=== PATIENT | male | born 1940 | race Caucasian/White ===

== ENCOUNTER 2016-11-20 12:14 | Inpatient (IN) ==
--- NOTE | 2016-11-20 12:53 | Emergency Department Note ---
Disposition Clinical Impression: COPD exacerbation, Atrial fibrillation with RVR, Elevated troponin Disposition: Admitted As Inpatient Condition: Fair Referrals: Gustabo Ross DO [Primary Care Provider] - Forms: ED Satisfaction Letter Time of Disposition: 15:29 SOB HPI - General Chief Complaint: ED Shortness of Breath/Dyspnea Stated Complaint: TATUM Time Seen by Provider: 11/20/16 12:46 Nursing Notes Reviewed: Yes Vital Signs Reviewed: Yes - History of Present Illness Patient is a 76-year-old male who presents to [facility] ED with a chief complaint of difficult deep breathing. States his symptoms have been ongoing for the last 3 weeks. He was seen approximately 10 days prior by his primary care physician who placed him on a course of antibiotics. States he was feeling better until yesterday. Patient does have a past medical history of atrial fibrillation with RVR which occurred during a previous hospitalization due to pneumonia. His doctor initially told him to stay away from albuterol but that they could not afford the other medications that they went back on albuterol. He presents here today also in atrial fibrillation. Pt Subjective Complaint: shortness of breath Onset (ago): hour(s) Context: recent illness Severity: moderate Consistency/Duration: gradually worsening Improves with: nothing Worsens with: exertion Known history of: COPD Associated symptoms: Reports: cough, wheezing. Denies: fever Treatment prior to arrival: oxygen Cough present: Yes Cough Description: Involuntary Cough Frequency: Continuous - Related Data Home oxygen amount: 2 liters Home Medications Medication Instructions Recorded Confirmed Docusate [Colace] 200 mg PO BID 11/10/15 11/20/16 Isosorbide MONOnitrate (24 HR) 30 mg PO QAM 11/10/15 11/20/16 [Imdur] Losartan [Cozaar] 25 mg PO QAM 11/10/15 11/20/16 Metformin [Glucophage] 500 mg PO QAM 11/10/15 11/20/16 Metoprolol XL (24 HR) Succ [Toprol 50 mg PO QAM 11/10/15 11/20/16 Xl] Psyllium Husk [Fiber] 2 cap PO HS 11/10/15 11/20/16 Rosuvastatin [Crestor] 20 mg PO HS 11/10/15 11/20/16 [place] Oil/[place]-3 Fatty Acids 1 cap PO QAM 11/10/15 11/20/16 [Fish Oil 500 mg Softgel] Furosemide [Lasix] 40 mg PO QAM 11/13/15 11/20/16 Potassium Chloride 10 meq PO QAM 11/13/15 11/20/16 Previous Rx's Medication Instructions Recorded Levalbuterol Neb [Xopenex Neb] 1.25 mg IH TID #1 vial.neb 11/15/15 Budesonide/Formoterol 80/4.5 2 puff IH BIDR #1 inhaler 11/21/15 [Symbicort 80/4.5] Aspirin Enteric Coated [Aspirin EC] 81 mg PO DAILY #30 tablet. 11/26/15 Amoxicillin 875 mg PO BID #28 tablet 11/10/16 Allergies Allergy/AdvReac Type Severity Reaction Status Date / Time No Known Drug Allergies Allergy See Verified 11/10/15 12:38 Comments All systems ED: reviewed and negative except as stated. Past Medical History - Past Medical History Attestation: Yes The following information was validated with the patient. Source: patient Medical history: Reports: arthritis, atrial fibrillation, cancer, COPD, coronary artery disease, diabetes, myocardial infarction, other Surgical history: Reports: angioplasty/stent ( X 5), herniorrhaphy Psychiatric history: Reports: anxiety, depression - Social History Smoking Status: Never smoker Smokeless Tobacco Status: No Alcohol use: Reports: unknown Drug use: Reports: none Physical Exam - General Limitations: no limitations General appearance: alert - Head Head exam: atraumatic, normocephalic, normal inspection - Eye Eye exam: Present: normal appearance, PERRL, EOMI - ENT ENT exam: normal exam, normal oropharynx, mucous membranes moist - Neck Neck exam: Present: normal inspection, full ROM, trachea midline - Chest Chest inspection: Present: normal inspection, symmetric chest wall rise - Respiratory Respiratory exam: Present: wheezes (diffuse b/l) - Cardiovascular Cardiovascular exam: Present: tachycardia, irregular rhythm - Abdominal Exam Abdominal exam: Present: soft, Non-Tender. Absent: tenderness, distention, guarding, rebound, rigidity - Extremities Exam Extremities exam: Present: normal inspection, full ROM. Absent: tenderness, pedal edema - Back Exam Back exam: Present: normal inspection, full ROM. Absent: tenderness - Neurological Exam Neurological exam: Present: alert, oriented X3 - Psychiatric Psychiatric exam: Present: normal affect, normal mood - Skin Skin exam: Present: warm, dry, intact, normal color Course Course Narrative: Patient seen and examined. Difficulty breathing and wheezing. Likely COPD exacerbation. Patient has bilateral diffuse wheezes and sounds very tight. Denies any chest pain at this time. Cardiopulmonary workup initiated. DuoNeb treatment and 125 mg Solu-Medrol ordered. - Reevaluation(s) Reevaluation #1: Troponin elevated at 0.04. Patient still in atrial fibrillation with RVR with a rate in the low 100s. I feel this is likely secondary to his COPD exacerbation. We will likely admit for elevated troponin, COPD exacerbation, and atrial fibrillation with RVR. 10mg IV cardizem ordered. Time: 14:26 Reevaluation #2: Patient's rate has slowed down to the upper 90s. He felt slightly better after the breathing treatment. We will go ahead and admit at this time. Hospitalist paged. Time: 15:15 Reevaluation #3: Patient accepted to hospitalist service by Dr. Ruiz. Time: 15:28 Vital Signs Temperature 99 F 11/20/16 12:31 Pulse Rate 114 11/20/16 12:31 Respiratory Rate 18 11/20/16 12:31 Blood Pressure 146/98 11/20/16 12:31 O2 Sat by Pulse Oximetry 97 11/20/16 12:31 Temperature 99 F 11/20/16 12:31 Pulse Rate 111 11/20/16 13:48 Respiratory Rate 18 11/20/16 13:48 Blood Pressure 135/83 11/20/16 13:48 O2 Sat by Pulse Oximetry 97 11/20/16 13:48 Oxygen Delivery Oxygen Delivery Nasal Cannula Shortness of Breath/Dyspnea - Medical Records Medical records reviewed: Yes I reviewed the patient's medical records. - Lab Data Lab results reviewed: Yes I reviewed the patient's lab results. Result diagrams: 11/20/16 13:01 11/20/16 13:01 Lab Results 11/20/16 11/20/16 11/20/16 Range/Units 13:01 13:01 13:01 WBC 8.7 (4.3-11.1) K/mcL RBC 4.73 (4.19-5.50) M/mcL Hgb 13.9 (12.9-16.9) g/dL Hct 42.2 (37.5-50.1) % MCV 89.2 (83.0-100.0) fL MCH 29.4 (28.0-33.3) pg MCHC 32.9 (31.6-35.5) g/dL RDW 14.0 (11.5-14.5) % Plt Count 232 (140-400) K/mcL MPV 9.4 (9.4-12.4) fL Immature Gran % 0.6 (0-4) % Seg Neutrophils % 65.8 % Lymphocytes % 14.7 % Monocytes % 18.1 % Eosinophils % 0.5 % Basophils % 0.3 % Neutrophils # 5.7 (1.6-8.9) K/mcL Lymphocytes # 1.3 (0.6-4.6) K/mcL Monocytes # 1.6 H (0.0-1.3) K/mcL Eosinophils # 0.0 (0.0-0.6) K/mcL Basophils # 0.0 (0.0-0.2) K/mcL Platelet Estimate Normal (Normal) Sodium 137 (136-145) mEq/L Potassium 4.0 (3.5-4.5) mEq/L Chloride 101 (98-109) mEq/L Carbon Dioxide 28 (19-29) mEq/L BUN 9 (8-26) mg/dL Creatinine 0.82 (0.72-1.25) mg/dL Est GFR ( Amer) > 60 (> 60) Est GFR (Non-Af Amer) > 60 (> 60) BUN/Creatinine Ratio 11 (6-26) Glucose 111 H (70-99) mg/dL Calculated Osmolality 283 (280-300) Calcium 9.2 (8.6-10.8) mg/dL Troponin I 0.04 H* (0-0.03) ng/mL B-Natriuretic Peptide (0-100) pg/mL 11/20/16 Range/Units 13:01 WBC (4.3-11.1) K/mcL RBC (4.19-5.50) M/mcL Hgb (12.9-16.9) g/dL Hct (37.5-50.1) % MCV (83.0-100.0) fL MCH (28.0-33.3) pg MCHC (31.6-35.5) g/dL RDW (11.5-14.5) % Plt Count (140-400) K/mcL MPV (9.4-12.4) fL Immature Gran % (0-4) % Seg Neutrophils % % Lymphocytes % % Monocytes % % Eosinophils % % Basophils % % Neutrophils # (1.6-8.9) K/mcL Lymphocytes # (0.6-4.6) K/mcL Monocytes # (0.0-1.3) K/mcL Eosinophils # (0.0-0.6) K/mcL Basophils # (0.0-0.2) K/mcL Platelet Estimate (Normal) Sodium (136-145) mEq/L Potassium (3.5-4.5) mEq/L Chloride (98-109) mEq/L Carbon Dioxide (19-29) mEq/L BUN (8-26) mg/dL Creatinine (0.72-1.25) mg/dL Est GFR ( Amer) (> 60) Est GFR (Non-Af Amer) (> 60) BUN/Creatinine Ratio (6-26) Glucose (70-99) mg/dL Calculated Osmolality (280-300) Calcium (8.6-10.8) mg/dL Troponin I (0-0.03) ng/mL B-Natriuretic Peptide 220 H (0-100) pg/mL - Radiology Data Radiology results reviewed: Yes I reviewed the patient's radiology results. - EKG Data EKG attestation: Yes I reviewed and interpreted this EKG. EKG results narrative: EKG done at 1237 shows atrial fibrillation with RVR with a rate of 109 beats per minute. Moderate intraventricular conduction delay. No acute ST elevation. Mild ST depression noted in V5 and V6. Critical Care Time Critical Care Time: Yes Total Critical Care Time: 35 Attestation: Critical care time 35 minutes separate from other billable procedures. Attestation Statement - Attestation Attestation: Patient was seen with resident physician. I reviewed the history, physical, assessment and plan, and agree with the findings. I also personally evaluated this patient and had [id number] time with this patient. 76-year-old male presents to the emergency department with worsening shortness of breath cough for the last several days. History of COPD, and A. fib with RVR that was brought on from pneumonia.. Currently his symptoms have been progressively getting worse. On examination patient has very poor air exchange with some wheezing throughout. Also has heart with tachycardia. Abdomen is soft and nontender with positive bowel sounds. Extremities are unremarkable. We will do workup for breathing trouble and chest pain. Patient turns out to have A. fib with RVR in addition to acute asthma exacerbation. His troponin was slightly positive. We will need to admit the patient to the hospital for further evaluation and treatment. Critical care time 35 minutes to address both the elevated cardiac enzymes as well as the A. fib with RVR in respiratory issues. Agree with the resident physician assessment plan
[2016-11-20] MEDS ORDERED: Ipratropium/Albuterol Neb 3 ML IH ONE (12:54)
[2016-11-20 13:10] LABS: Basophils % 0.3 %; Eosinophils % 0.5 %; Hematocrit 42.2 % (37.5-50.1); Hemoglobin 13.9 g/dL (12.9-16.9); Immature Granulocytes % 0.6 % (0-4); Lymphocytes # 1.3 K/mcL (0.6-4.6); Lymphocytes % 14.7 %; Mean Corpuscular HGB Conc 32.9 g/dL (31.6-35.5); Mean Corpuscular Hemoglobin 29.4 pg (28.0-33.3); Mean Corpuscular Volume 89.2 fL (83.0-100.0); Mean Platelet Volume 9.4 fL (9.4-12.4); Monocytes # 1.6 K/mcL (0.0-1.3); Monocytes % 18.1 %; Neutrophils # 5.7 K/mcL (1.6-8.9); Platelet Count 232 K/mcL (140-400); Red Blood Count 4.73 M/mcL (4.19-5.50); Segmented Neutrophils % 65.8 %
[2016-11-20 13:25] LABS: BUN/Creatinine Ratio 11 (6-26); Blood Urea Nitrogen 9 mg/dL (8-26); Calcium 9.2 mg/dL (8.6-10.8); Carbon Dioxide 28 mEq/L (19-29); Chloride 101 mEq/L (98-109); Glucose 111 mg/dL (70-99); Osmolality,Calculated 283 (280-300); Sodium 137 mEq/L (136-145); eGFR For African Americans > 60 (> 60); eGFR For Non-African Americans > 60 (> 60)
[2016-11-20 13:39] LABS: Platelet Estimate Normal (Normal)
[2016-11-20] MEDS ORDERED: methylPREDNISolone 125 MG/2 ML VIAL IVP ONE (14:16)
[2016-11-20] MEDS ORDERED: Aspirin 81 MG TAB.CHEW PO STA (14:17)
--- NOTE | 2016-11-20 16:17 | Internal Med History&Physical ---
<Paola Mccrary - Last Filed: 11/20/16 16:57> Date of Encounter: 11/20/16 Time of Encounter: 16:15 Assessment and Plan (1) COPD exacerbation Current visit: Yes Status: Acute Evidenced by worsening dyspnea, cough with sputum production. Worsening dyspnea may be multifactorial with contribution from suspected CHF/ VHD. Will commence with empiric antibiotic therapy, obtain BC x 2, sputum G/S & culture, systemic steroids and weaning as clinically warranted. Patient has multiple comorbidities, with cardiac and pulmonary involvement, appropriate for hospital evaluation and workup. (2) Atrial fibrillation with RVR Current visit: Yes Status: Acute Currently on rate-control regimen toprol XL 50mg QAM. Suspect breakthrough RVR 2* COPD and CHF exacerbations. Treatment per below. May warrant increasing dose of toprol XL to 100mg QAM, HR permitting. CHADSVASC 4: Appropriate candidate for anticoagulation. 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 Cardiology and Heme/Onc services had offered him a different agent, but he had declined. We discussed the R/B/A to full anticoagulation, and patient declines at this time. He understands that not being on a/c predisposes him to an increased risk of stroke and other embolic phenomenon. (3) Elevated troponin Current visit: Yes Status: Acute Trope 0.04, in setting of suspected COPD and CHF exacerbation. EKG with Afib, HR 109, QTc 415, moderate intraventricular conduction delay. Has history of prior MD, reports stent in 1995. Will trend. Obtain repeat Echo. (4) CHF (congestive heart failure) Current visit: No Status: Chronic Last Echo: 07/31/2014 Echo: LVEF 60-65%. Mild concentric left ventricular hypertrophy. Diastolic function and valves not evaluated on this limited study. Aside from atypical septal motion due to a bundle branch block, no wall motion abnormalities seen on this study. Suspect degree of CHF exacerbation evidenced by basilar crackles and LE edema. He has a mild troponin elevation 0.04 as well. HFpEF (Heart failure preserved ejection fraction) EKG with Afib, HR 109, QTc 415, moderate intraventricular conduction delay. Has history of prior MD, reports stent in 1995. Diuresis regimen, monitor I/O, volume status. Appropriate for re-eval of LV and Valvular function - Order for Echo with definity. Qualifiers: Congestive heart failure type: diastolic Congestive heart failure chronicity: acute on chronic Qualified Code(s): I50.33 - Acute on chronic diastolic (congestive) heart failure (5) CAD (coronary artery disease), [place] coronary artery Current visit: Yes Status: Acute Prior cardiac and pulmonary workup would include: 01/29/2014 [facility] Unsuccessful attempt at PCI of the calcified chronic total occlusion ([employer]) to mid RCA complicated by RCA dissection that propagates to the ascending aorta. PTCA/Stent of the Proximal and ostium of the RCA to seal the dissection flap and prevents further propagation. Patient had successful PTCA/Drug-Eluting Stent placement in the proximal RCA. Patient had unsuccessful PCI of CLUTCH ASSEMBLER to mid RCA Will continue optimal medical therapy. Qualifiers: [place] vs. transplanted heart: [place] heart Associated angina: without angina Qualified Code(s): I25.10 - Atherosclerotic heart disease of [place] coronary artery without angina pectoris (6) PLACIDO on CPAP Current visit: Yes Status: Acute PLACIDO, on CPAP. Cont QHS. (7) DVT prophylaxis Current visit: No Status: Acute Heparin 5000 U SC BID. History chronic Afib, full anticoagulation was discontinued due to prior hematoma of rectal sheath. Internal Medicine - H&P: HPI Chief complaint: Shortness of breath Admitted From: Home Plans for Post Hospital Care: Home (with ) History of present illness: Mr. Julien is a 76 year old male with past medical history hypertension, hyperlipidemia, obesity, obstructive sleep apnea, CAD, COPD. Patient seen 11/10/16, To urgent care with similar symptoms, sent home with prescription amoxicillin 875 mg by mouth twice a day for 2 week course. He would present to [facility] with worsening shortness of breath, as well as tachycardia, prompting further evaluation. Prior cardiac and pulmonary workup would include: 01/29/2014 [facility] Unsuccessful attempt at PCI of the calcified chronic total occlusion (CLUTCH ASSEMBLER) to mid RCA complicated by RCA dissection that propagates to the ascending aorta. PTCA/Stent of the Proximal and ostium of the RCA to seal the dissection flap and prevents further propagation. Patient had successful PTCA/Drug-Eluting Stent placement in the proximal RCA. Patient had unsuccessful PCI of CLUTCH ASSEMBLER to mid RCA 07/31/2014 Echo: LVEF 60-65%. Mild concentric left ventricular hypertrophy. Diastolic function and valves not evaluated on this limited study. Aside from atypical septal motion due to a bundle branch block, no wall motion abnormalities seen on this study. Chronic atrial fibrillation, was previously on several toe, but then developed hematoma of rectal sheath during hospitalization 11/24/2015. Xarelto was subsequently stopped, cardiology and hematology/oncology had recommended a period without full anticoagulation, consideration for Pradaxa or coumadin. Patient ultimately declined any anticoagulation, but continued on ASA and Plavix. 08/29/2016 PFTs discloses severe obstructive impairment without significant bronchodilator response, FEV1 48% predicted. Upon my evaluation, patient affirms general medical history, but his recollection of sequence leading to hospitalization and precise medical regimen is vague, so medical record was used. Per ER documentation, patient would have upper respiratory symptoms for about 3 weeks, then evaluated by Urgent Care and commenced on oral antibiotics without much improvement. He would endorse subjective chills, worsening shortness of breath, cough with productive green whitish sputum. He would be on chronic long-term oxygen therapy 2 L nasal cannula constant. Patient does report chest discomfort with coughing and with deep inspiration, but denies any substernal nature, dyspnea on exertion, or anginal equivalents. States that he has no abdominal pain, no nausea, vomiting, diarrhea, changes in bowel habits, blood in stool. He reports compliance with Lasix and Imdur. He endorses mild lower extremity pitting edema, no erythema or trauma. He feels somewhat lightheaded when standing up from a seated position, but denies any dizziness or visual changes. Discussion of his specific medication regimen, he is able to produce a list and ultimately states he is on Plavix and aspirin but not on any anticoagulation. He is on metoprolol XL 50 mg once daily, not on any Cardizem. Patient lives at home with his ex-, he denies any sick contacts. He is a former smoker with [id number] smoking history, quit roughly 25 years ago. He denies any alcohol use or illicit drug use. Past Med Surg Social Fam HX - Past Medical History Medical history: arthritis, atrial fibrillation, cancer, COPD, coronary artery disease, diabetes, myocardial infarction, other Psychiatric history: anxiety, depression - Past Surgical History Surgical History: angioplasty/stent ( X 5), herniorrhaphy - Social History Smoking Status: Never smoker Smokeless Tobacco Status: No Alcohol use: unknown Drug use: none - Family History Father Hx Family Neurologic Disorders: Yes (stroke) Internal Medicine - H&P: Meds Docusate [Colace] 200 mg PO BID 11/10/15 [History] Isosorbide MONOnitrate (24 HR) [Imdur] 30 mg PO QAM 11/10/15 [History] Losartan [Cozaar] 25 mg PO QAM 11/10/15 [History] Metformin [Glucophage] 500 mg PO QAM 11/10/15 [History] Metoprolol XL (24 HR) Succ [Toprol Xl] 50 mg PO QAM 11/10/15 [History] Psyllium Husk [Fiber] 2 cap PO HS 11/10/15 [History] Rosuvastatin [Crestor] 20 mg PO HS 11/10/15 [History] [employer] Oil/[place]-3 Fatty Acids [Fish Oil 500 mg Softgel] 1 cap PO QAM 11/10/15 [ History] Furosemide [Lasix] 40 mg PO QAM 11/13/15 [History] Potassium Chloride 10 meq PO QAM 11/13/15 [History] Levalbuterol Neb [Xopenex Neb] 1.25 mg IH TID #1 vial.neb 11/15/15 [Rx] Budesonide/Formoterol 80/4.5 [Symbicort 80/4.5] 2 puff IH BIDR #1 inhaler 11/21 [Rx] Aspirin Enteric Coated [Aspirin EC] 81 mg PO DAILY #30 tablet. 11/26/15 [Rx] Amoxicillin 875 mg PO BID #28 tablet 11/10/16 [Rx] Allergies No Known Drug Allergies Allergy (Verified 11/10/15 12:38) See Comments All Systems PM: A 10-system review of systems was performed and is negative for pertinent findings except as documented above in the HPI. - Constitutional Vitals: Temp Pulse Resp BP Pulse Ox 99 F 104 16 156/97 95 11/20/16 15:54 11/20/16 15:41 11/20/16 15:54 11/20/16 15:54 11/20/16 15:41 General appearance: Present: disheveled, A&O X 3, answers questions appropriately - Head Head exam: Present: atraumatic, normocephalic - Eye Eye exam: Present: EOMI, sclera anicteric - ENT ENT exam: Present: mucous membranes moist - Neck Neck exam general surgery: Present: supple, trachea midline. Absent: nuchal rigidity - Respiratory Respiratory exam: Present: prolonged expiratory phase, rales (crackles bibasilar , scant), rhonchi (end exp ronchi, pronounced in bases), wheezes (slight insp). Absent: accessory muscle use - Cardiovascular Cardiovascular exam: Present: irregular rhythm (ir/ir c/w Wfib), +S1, +S2. Absent: JVD - GI/Abdominal GI/Abdominal exam: Present: soft, no peritoneal signs. Absent: tenderness - Extremities Exam Extremities exam: Present: pedal edema (1+ bilateral pitting pretibial to mid ankle ), warm, radial pulses palpable and symetrical - Neurological Exam Neurological exam: Present: strengths equal and symetr throughout. Absent: facial droop, speech deficit Internal Med - H&P Results - Labs CBC & Chem 7: 11/20/16 13:01 11/20/16 13:01 <John Ruiz - Last Filed: 11/20/16 19:01> Date of Encounter: 11/20/16 Internal Medicine - H&P: HPI History of present illness: Mr. Julien is a 76 year old male All Systems PM: A 10-system review of systems was performed and is negative for pertinent findings except as documented above in the HPI. - Constitutional Vitals: Temp Pulse Resp BP Pulse Ox 98.1 F 103 16 167/97 93 L 11/20/16 16:40 11/20/16 16:40 11/20/16 16:40 11/20/16 16:40 11/20/16 16:40 Internal Med - H&P Results - Labs CBC & Chem 7: 11/20/16 13:01 11/20/16 13:01 - Attending Attestation I have seen and examined this patient independently. I have discussed the case with the resident, Dr. Mccrary. I agree with the data gathering in the HPI, physical examination findings, assessment and plan as documented by the resident. COPD exacerbation. The plan was discussed in detail with the patient.
[2016-11-20] MEDS ORDERED: Naloxone 0.4 MG/ML INJ IVP PRN (16:34)
--- NOTE | 2016-11-20 17:55 | Electrocardiograph Report ---
Test Date: 2016-11-20 Pat Name: Immanuel Julien Department: 104 Room: 3B37 Gender: M [employer] Manager: MYRON : 1940 Requested By: Rosy Larios Order Number: [id number] Reading MD: Sandra Kilgore DO Measurements Intervals [place] Rate: 109 P: [place]: 0 QRS: 19 QRSD: 114 T: 34 QT: 351 QTc: 415 Interpretive Statements ATRIAL FIBRILLATION WITH RAPID VENTRICULAR RESPONSE MODERATE INTRAVENTRICULAR CONDUCTION DELAY NONSPECIFIC ST \T\ T-WAVE ABNORMALITY Electronically Signed On 11-20-16 17:39:59 EST by Sandra Kilgore DO
[2016-11-20] MEDS: methylPREDNISolone 125 MG/2 ML VIAL IVP SCH (18:37)
[2016-11-20] MEDS: Levofloxacin 500 MG/100 ML 500 MG/100 ML BAG IVPB SCH (18:38)
[2016-11-20] MEDS: *HR* Heparin 5,000 UNIT/ML VIAL SQ SCH (18:38)
[2016-11-20] MEDS: Levalbuterol Neb 1.25 MG/3 ML IH SCH (19:57)
[2016-11-20] MEDS: Ipratropium/Albuterol Neb 3 ML IH SCH ×2 (20:00→23:32)
[2016-11-20] MEDS: Budesonide/Formoterol 80/4.5 MDI IH SCH (20:14)
[2016-11-20] MEDS: Furosemide 40 MG/4 ML VIAL IVP SCH (20:34)
[2016-11-21 01:23] LABS: Basophils % 0.2 %; Hematocrit 42.7 % (37.5-50.1); Hemoglobin 14.1 g/dL (12.9-16.9); Immature Granulocytes % 0.7 % (0-4); Immature Platelets 3.7 % (1.1-6.1); Lymphocytes # 0.5 K/mcL (0.6-4.6); Lymphocytes % 9.2 %; Mean Corpuscular Hemoglobin 29.5 pg (28.0-33.3); Mean Corpuscular Volume 89.3 fL (83.0-100.0); Mean Platelet Volume 9.4 fL (9.4-12.4); Monocytes # 0.4 K/mcL (0.0-1.3); Monocytes % 6.6 %; Neutrophils # 4.8 K/mcL (1.6-8.9); Platelet Count 242 K/mcL (140-400); Red Blood Count 4.78 M/mcL (4.19-5.50); Red Cell Distribution Width 13.9 % (11.5-14.5); Segmented Neutrophils % 83.3 %
[2016-11-21 01:37] LABS: BUN/Creatinine Ratio 15 (6-26); Blood Urea Nitrogen 14 mg/dL (8-26); Calcium 9.2 mg/dL (8.6-10.8); Carbon Dioxide 25 mEq/L (19-29); Chloride 100 mEq/L (98-109); Chol/HDL Ratio 3.4 (0-4.9); Cholesterol 114 mg/dL (< 200); Glucose 181 mg/dL (70-99); HDL Cholesterol 34 mg/dL (40-59); LDL Cholesterol,Calculated 62 mg/dL (0-99); Osmolality,Calculated 287 (280-300); Phosphorous 3.5 mg/dL (2.3-4.7); Potassium 3.6 mEq/L (3.5-4.5); Sodium 136 mEq/L (136-145); Triglycerides 89 mg/dL (< 150); eGFR For African Americans > 60 (> 60); eGFR For Non-African Americans > 60 (> 60)
[2016-11-21] MEDS: Ipratropium/Albuterol Neb 3 ML IH SCH ×6 (03:56→23:06)
[2016-11-21] MEDS: *HR* Heparin 5,000 UNIT/ML VIAL SQ SCH ×2 (05:31→16:54)
[2016-11-21] MEDS: methylPREDNISolone 125 MG/2 ML VIAL IVP SCH ×2 (05:31→16:54)
[2016-11-21] MEDS: Levalbuterol Neb 1.25 MG/3 ML IH SCH ×3 (07:49→20:43)
[2016-11-21] MEDS: Aspirin Enteric Coated 81 MG Tablet PO SCH (08:58)
[2016-11-21] MEDS: Magnesium Oxide 400 MG TABLET PO SCH (08:58)
[2016-11-21] MEDS: Metoprolol XL (24 HR) Succ 50 MG TAB.ER.24H PO SCH (08:58)
[2016-11-21] MEDS: Furosemide 40 MG/4 ML VIAL IVP SCH ×2 (08:59→19:46)
[2016-11-21] MEDS: Isosorbide MONOnitrate (24 HR) 30 MG TAB.ER.24H PO SCH (08:59)
--- NOTE | 2016-11-21 10:10 | Internal Med Progress Note ---
<Paola Mccrary - Last Filed: 11/21/16 13:27> Date of Encounter: 11/21/16 Time of Encounter: 09:50 - Assessment and plan (1) COPD exacerbation Current Visit: Yes Status: Acute Assessment and plan: Evidenced by worsening dyspnea, cough with sputum production. Worsening dyspnea may be multifactorial with contribution from suspected CHF/ VHD. Will commence with empiric antibiotic therapy, obtain BC x 2, sputum G/S & culture, systemic steroids and weaning as clinically warranted. 11/21/15 Wean to prednisone 40mg QD starting tomorrow. Influenza A/B negative, sputum pending Continue Levaquin Day #2 (2) Atrial fibrillation with RVR Current Visit: Yes Status: Acute Assessment and plan: urrently on rate-control regimen toprol XL 50mg QAM. Suspect breakthrough RVR 2* COPD and CHF exacerbations. Treatment per below. May warrant increasing dose of toprol XL to 100mg QAM, HR permitting. CHADSVASC 4: Appropriate candidate for anticoagulation. 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 Cardiology and Heme/Onc services had offered him a different agent, but he had declined. We discussed the R/B/A to full anticoagulation, and patient declines. He understands that not being on a/c predisposes him to an increased risk of stroke and other embolic phenomenon. (3) Elevated troponin Current Visit: Yes Status: Acute Assessment and plan: Trope 0.04, in setting of suspected COPD and CHF exacerbation. Trended down 0.02. EKG with Afib, HR 109, QTc 415, moderate intraventricular conduction delay. Has history of prior CA, reports stent in 1995. 11/21/16 Echo obtained, await report (4) CHF (congestive heart failure) Current Visit: No Status: Chronic Assessment and plan: Last Echo 07/31/2014 Echo: LVEF 60-65%. Mild concentric left ventricular hypertrophy. Diastolic function and valves not evaluated on this limited study. Aside from atypical septal motion due to a bundle branch block, no wall motion abnormalities seen on this study. Suspect degree of CHF exacerbation evidenced by basilar crackles and LE edema. He has a mild troponin elevation 0.04 as well. HFpEF (Heart failure preserved ejection fraction) EKG with Afib, HR 109, QTc 415, moderate intraventricular conduction delay. Has history of prior CA, reports stent in 1995. Diuresis regimen, monitor I/O, volume status, 1.8L fluid restriction. I/O net neg 200cc documented Await report of Echo with definity. Qualifiers: Congestive heart failure type: combined Congestive heart failure chronicity : acute on chronic Qualified Code(s): I50.43 - Acute on chronic combined systolic (congestive) and diastolic (congestive) heart failure (5) CAD (coronary artery disease), [place] coronary artery Current Visit: Yes Status: Acute Assessment and plan: Prior cardiac and pulmonary workup would include: 01/29/2014 [facility] Unsuccessful attempt at PCI of the calcified chronic total occlusion (STAFF RADIATION THERAPIST) to mid RCA complicated by RCA dissection that propagates to the ascending aorta. PTCA/Stent of the Proximal and ostium of the RCA to seal the dissection flap and prevents further propagation. Patient had successful PTCA/Drug-Eluting Stent placement in the proximal RCA. Patient had unsuccessful PCI of STAFF RADIATION THERAPIST to mid RCA Will continue optimal medical therapy. Qualifiers: [place] vs. transplanted heart: [place] heart Associated angina: without angina Qualified Code(s): I25.10 - Atherosclerotic heart disease of [place] coronary artery without angina pectoris (6) PLACIDO on CPAP Current Visit: Yes Status: Acute Assessment and plan: PLACIDO, on CPAP. Cont QHS. (7) DVT prophylaxis Current Visit: No Status: Acute Assessment and plan: Heparin 5000 U SC BID. History chronic Afib, full anticoagulation was discontinued due to prior hematoma of rectal sheath. - Subjective Interval history: Patient seen/eval, he returned from his TTE. Discussed importance of fluid restriction and sodium intake. Patient affirms he is breathing better, cough has improved. He expresses a fondness of breakfast sausage and states he had recently increased fluid intake to improve bowel movements. He denies any fever , chills, chest pain, nvd. - Constitutional Vitals: Temp Pulse Resp BP Pulse Ox 98.1 F 65 16 128/86 96 11/21/16 10:02 11/21/16 10:02 11/21/16 10:02 11/21/16 10:02 11/21/16 10:02 General appearance: Present: disheveled, A&O X 3, answers questions appropriately - Head Head exam: Present: atraumatic, normocephalic - Eye Eye exam: Present: EOMI, sclera anicteric - ENT ENT exam: Present: mucous membranes moist - Neck Neck exam general surgery: Present: supple, trachea midline - Respiratory Respiratory exam: Present: prolonged expiratory phase, rhonchi (scant end exp ronchi, no wheeze. Basilar crackles have improved from previous). Absent: accessory muscle use, wheezes - Cardiovascular Cardiovascular exam: Present: +S1, +S2. Absent: JVD - GI/Abdominal GI/Abdominal exam: Present: soft. Absent: distended, tenderness - Extremities Exam Extremities exam: Present: pedal edema (1+ pretibial mid ankle), warm, radial pulses palpable and symetrical Internal Medicine: Result - Labs CBC & Chem 7: 11/21/16 01:16 11/21/16 01:16 Labs: Short CBC 11/21/16 Range/Units 01:16 WBC 5.8 (4.3-11.1) K/mcL Hgb 14.1 (12.9-16.9) g/dL Hct 42.7 (37.5-50.1) % Plt Count 242 (140-400) K/mcL Neutrophils # 4.8 (1.6-8.9) K/mcL BMP 11/21/16 01:16 Sodium 136 Potassium 3.6 Chloride 100 Carbon Dioxide 25 BUN 14 Creatinine 0.93 Glucose 181 H Calcium 9.2 Cardiac Enzymes 11/20/16 11/21/16 Range/Units 18:28 01:16 Troponin I 0.02 0.02 (0-0.03) ng/mL Consult Discharge Plan - Plan Referrals: Gustabo Ross DO [Primary Care Provider] - <John Ruiz - Last Filed: 11/21/16 17:50> Date of Encounter: 11/21/16 - Constitutional Vitals: Temp Pulse Resp BP Pulse Ox 98.1 F 65 16 128/86 96 11/21/16 10:02 11/21/16 10:02 11/21/16 11:06 11/21/16 10:02 11/21/16 11:06 Internal Medicine: Result - Labs CBC & Chem 7: 11/21/16 01:16 11/21/16 01:16 Labs: Short CBC 11/21/16 Range/Units 01:16 WBC 5.8 (4.3-11.1) K/mcL Hgb 14.1 (12.9-16.9) g/dL Hct 42.7 (37.5-50.1) % Plt Count 242 (140-400) K/mcL Neutrophils # 4.8 (1.6-8.9) K/mcL BMP 11/21/16 01:16 Sodium 136 Potassium 3.6 Chloride 100 Carbon Dioxide 25 BUN 14 Creatinine 0.93 Glucose 181 H Calcium 9.2 Cardiac Enzymes 11/20/16 11/21/16 Range/Units 18:28 01:16 Troponin I 0.02 0.02 (0-0.03) ng/mL - Attending Attestation I saw and examined this patient independently. Agree with physical examination findings, assessment and plan as documented by Dr. Mccrary. New echo revealed EF 35 %. Will get cardiology input. Continue with diuretics.
--- NOTE | 2016-11-21 10:31 | ECHO - Doppler Report ---
Echocardiogram Name: Immanuel Julien Date of Study: 11/21/2016 Date: 1940 Ht: 71.0 in Medical Record#: [id number] Age: 76 Wt: 245.0 lb Gender: Male BSA: 2.3 Order #: [id number] Location: [facility] Room #: [id number] Reading Physician: Miah Ya MD, [facility] Sales Marketing Director: Kerry Carrera RVT Ordering Physician: Paola Mccrary DO Primary Physician: Gustabo Ross DO Indications: Congestive heart failure exacerbation, Elevated troponin Impressions: Mildly dilated left ventricle. Moderate-severe LV systolic dysfunction, LVEF 35%. There are regional wall motion abnormalities, see diagram below. Atypical septal motion consistent with bundle branch block. Indeterminate diastolic function due to atrial fibrillation. Normal right ventricular size and function. Moderately dilated left atrium. No significant valvular dysfunction. No evidence of pulmonary hypertension. Left Ventricular Wall Motion: Rest Echo Findings The mid inferior, basal inferior, mid inferior septal, basal inferior septal, mid anterior septal and basal anterior septal costa were hypokinetic. All other wall segments showed normal motion. Findings: Study Quality * Technically suboptimal due to poor echocardiographic windows. ECG Findings * Atrial fibrillation. Left Ventricle * Mildly dilated left ventricle. * Moderate-severe LV systolic dysfunction, LVEF 35%. There are regional wall motion abnormalities, see diagram below. * Atypical septal motion consistent with bundle branch block. * Normal LV wall thickness. * Indeterminate diastolic function due to atrial fibrillation. Right Ventricle * Normal right ventricular size and function. Left Atrium * Moderately dilated left atrium. Right Atrium * Normal right atrial size. Aorta * Normally sized aortic root. Pericardium * There is no pericardial effusion present. IVC * The IVC is borderline dilated with normal inspiratory collapse. Aortic Valve * Trileaflet aortic valve. * Mildly sclerotic aortic valve leaflets. * No aortic stenosis. * No aortic regurgitation. Mitral Valve * Mild mitral annular calcification * No mitral stenosis. * Trace mitral regurgitation. Tricuspid Valve * Tricuspid valve not well visualized. * No tricuspid stenosis. * Trace tricuspid regurgitation. * No evidence of pulmonary hypertension. Pulmonic Valve * Pulmonic valve not well visualized. * No pulmonic stenosis. * No pulmonic regurgitation. History Hypertension Diabetes Hypercholesteremia Family History of CAD History of CAD/PTCA Myocardial Infarction Congestive Heart Failure 11/11/2015 a Previous Echo was performed. Measurements: BP: 135 / 80 2D Normal Values RVIDd: 3.60 cm IVSd: 1.00 cm 0.6 - 1.0 cm LVIDd: 6.20 cm 3.7 - 5.6 cm LVPWd: 1.00 cm 0.6 - 1.1 cm LVIDs: 4.90 cm 1.5 - 3.6 cm AO: 3.40 cm < 4.0 cm LA volume: 93.7 Tricuspid Valve TV Regurg Peak Grad: 26.00mmHg TV Regurg Peak Wesley: 2.60m/sec Updated by Miah Ya MD, FACC on 11/21/2016 10:25:01 AM electronically signed on 11/21/2016 10:26:40 AM with status of Final Wall Motion Sparks: 1=Normal, 2=Hypokinesis, 3=Akinesis, 4=Dyskinesis, 5=Aneurysmal, 6=Hyperkinetic, X=Not Visualized (Blank)=Missing
[2016-11-21] MEDS: Budesonide/Formoterol 80/4.5 MDI IH SCH ×2 (11:06→20:46)
[2016-11-21] MEDS: Levofloxacin 500 MG/100 ML 500 MG/100 ML BAG IVPB SCH (16:54)
[2016-11-22] MEDS: Ipratropium/Albuterol Neb 3 ML IH SCH ×5 (03:52→20:17)
[2016-11-22 05:02] LABS: BUN/Creatinine Ratio 27 (6-26); Basophils % 0.2 %; Calcium 9.5 mg/dL (8.6-10.8); Carbon Dioxide 27 mEq/L (19-29); Chloride 100 mEq/L (98-109); Glucose 140 mg/dL (70-99); Hematocrit 42.3 % (37.5-50.1); Hemoglobin 14.1 g/dL (12.9-16.9); Immature Granulocytes % 0.9 % (0-4); Lymphocytes # 1.5 K/mcL (0.6-4.6); Lymphocytes % 7.8 %; Magnesium 2.2 mg/dL (1.6-2.6); Mean Corpuscular HGB Conc 33.3 g/dL (31.6-35.5); Mean Corpuscular Hemoglobin 29.7 pg (28.0-33.3); Mean Corpuscular Volume 89.2 fL (83.0-100.0); Mean Platelet Volume 9.8 fL (9.4-12.4); Monocytes # 2.5 K/mcL (0.0-1.3); Monocytes % 13.1 %; Neutrophils # 14.8 K/mcL (1.6-8.9); Osmolality,Calculated 291 (280-300); Platelet Count 279 K/mcL (140-400); Potassium 3.6 mEq/L (3.5-4.5); Red Blood Count 4.74 M/mcL (4.19-5.50); Red Cell Distribution Width 13.9 % (11.5-14.5); Sodium 137 mEq/L (136-145); eGFR For African Americans > 60 (> 60); eGFR For Non-African Americans > 60 (> 60)
[2016-11-22 05:03] LABS: Blood Urea Nitrogen 25 mg/dL (8-26)
[2016-11-22] MEDS: *HR* Heparin 5,000 UNIT/ML VIAL SQ SCH ×2 (06:04→16:51)
[2016-11-22] MEDS: Budesonide/Formoterol 80/4.5 MDI IH SCH ×2 (08:02→20:18)
[2016-11-22] MEDS: Levalbuterol Neb 1.25 MG/3 ML IH SCH ×3 (08:03→20:19)
--- NOTE | 2016-11-22 08:57 | Internal Med Progress Note ---
<Paola Mccrary - Last Filed: 11/22/16 16:53> Date of Encounter: 11/22/16 Time of Encounter: 08:45 - Assessment and plan (1) CHF (congestive heart failure) Current Visit: Yes Status: Chronic Assessment and plan: Last Echo 07/31/2014 Echo: LVEF 60-65%. Mild concentric left ventricular hypertrophy. Diastolic function and valves not evaluated on this limited study. Aside from atypical septal motion due to a bundle branch block, no wall motion abnormalities seen on this study. Suspect degree of CHF exacerbation evidenced by basilar crackles and LE edema. He has a mild troponin elevation 0.04 as well. HFpEF (Heart failure preserved ejection fraction) EKG with Afib, HR 109, QTc 415, moderate intraventricular conduction delay. Has history of prior CO, reports stent in 1995. Diuresis regimen, monitor I/O, volume status, 1.8L fluid restriction. 11/21/16 Echo EF 35%, regional WMA, indeterminate diastolic function due to Afib, no significant VHD/PAH Newly reduced EF, with WMA. Consult placed to Cardiology team, appreciate recs. 11/22/16, Appears euvolemic on exam. Stopped Lasix Patient had discussed with Cardiology team and agreeable to [facility] for delineation of ischemic CMP. Qualifiers: Congestive heart failure type: systolic Congestive heart failure chronicity : acute on chronic Qualified Code(s): I50.23 - Acute on chronic systolic ( congestive) heart failure (2) COPD exacerbation Current Visit: Yes Status: Acute Assessment and plan: Evidenced by worsening dyspnea, cough with sputum production. Worsening dyspnea may be multifactorial with contribution from suspected CHF/ VHD. Will commence with empiric antibiotic therapy, obtain BC x 2, sputum G/S & culture, systemic steroids and weaning as clinically warranted. 11/22/16 Wean to prednisone 40mg QD x 4 more days Influenza A/B negative, sputum negative Continue Levaquin Day #3 (3) Atrial fibrillation with RVR Current Visit: Yes Status: Acute Assessment and plan: Currently on rate-control regimen toprol XL 50mg QAM. Suspect breakthrough RVR 2* COPD and CHF exacerbations. Treatment per below. May warrant increasing dose of toprol XL to 100mg QAM, HR permitting. Appreciate cardiology recs. CHADSVASC 4: Appropriate candidate for anticoagulation. 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 Cardiology and Heme/Onc services had offered him a different agent, but he had declined. We discussed the R/B/A to full anticoagulation, and patient declines. He understands that not being on a/c predisposes him to an increased risk of stroke and other embolic phenomenon. (4) Elevated troponin Current Visit: Yes Status: Acute Assessment and plan: Trope 0.04, in setting of suspected COPD and CHF exacerbation. Trended down 0.02. EKG with Afib, HR 109, QTc 415, moderate intraventricular conduction delay. Has history of prior CO, reports stent in 1995. 11/21/16 Echo obtained, await report (5) CAD (coronary artery disease), [place] coronary artery Current Visit: Yes Status: Acute Assessment and plan: Prior cardiac and pulmonary workup would include: 01/29/2014 [facility] Unsuccessful attempt at PCI of the calcified chronic total occlusion (IT DISASTER RECOVERY MANAGER) to mid RCA complicated by RCA dissection that propagates to the ascending aorta. PTCA/Stent of the Proximal and ostium of the RCA to seal the dissection flap and prevents further propagation. Patient had successful PTCA/Drug-Eluting Stent placement in the proximal RCA. Patient had unsuccessful PCI of IT DISASTER RECOVERY MANAGER to mid RCA Will continue optimal medical therapy, ASA, Statin, BB Qualifiers: [place] vs. transplanted heart: [place] heart Associated angina: without angina Qualified Code(s): I25.10 - Atherosclerotic heart disease of [place] coronary artery without angina pectoris (6) PLACIDO on CPAP Current Visit: Yes Status: Acute Assessment and plan: PLACIDO, on CPAP. Cont QHS. (7) DVT prophylaxis Current Visit: No Status: Acute Assessment and plan: Heparin 5000 U SC BID. History chronic Afib, full anticoagulation was discontinued due to prior hematoma of rectal sheath. - Subjective Interval history: Patient seen/eval, he is sitting up in bed. Reports breathing and swelling are improved. He denies any overt chest pain, pressure, palpitations. No cough, fever, chills , nvd. Interval studies: Echo with EF 35%, worsened from 65% 2 years ago, consulted cardiology for further recs, consideration ICD, ischemic workup. - Constitutional Vitals: Temp Pulse Resp BP Pulse Ox 97.9 F 97 17 133/87 91 L 11/22/16 07:39 11/22/16 07:39 11/22/16 07:39 11/22/16 07:39 11/22/16 07:39 General appearance: Present: disheveled, A&O X 3, answers questions appropriately - Head Head exam: Present: atraumatic, normocephalic - Eye Eye exam: Present: EOMI, sclera anicteric - ENT ENT exam: Present: mucous membranes moist - Neck Neck exam general surgery: Present: normal inspection, trachea midline - Respiratory Respiratory exam: Present: rhonchi (scant ronchi, no wheeze. No basilar crackles , improved air mvmt). Absent: accessory muscle use, wheezes - Cardiovascular Cardiovascular exam: Present: +S1, +S2. Absent: JVD - GI/Abdominal GI/Abdominal exam: Present: soft, no peritoneal signs. Absent: tenderness - Extremities Exam Extremities exam: Present: pedal edema (very mild, improved from previous), warm , radial pulses palpable and symetrical - Neurological Exam Neurological exam: Absent: facial droop, speech deficit Internal Medicine: Result - Labs CBC & Chem 7: 11/22/16 04:09 11/22/16 04:09 Labs: Short CBC 11/22/16 Range/Units 04:09 WBC 19.0 H D (4.3-11.1) K/mcL Hgb 14.1 (12.9-16.9) g/dL Hct 42.3 (37.5-50.1) % Plt Count 279 (140-400) K/mcL Neutrophils # 14.8 H (1.6-8.9) K/mcL BMP 11/22/16 04:09 Sodium 137 Potassium 3.6 Chloride 100 Carbon Dioxide 27 BUN 25 D Creatinine 0.94 Glucose 140 H Calcium 9.5 Consult Discharge Plan - Plan Referrals: Gustabo Ross DO [Primary Care Provider] - <John Ruiz - Last Filed: 11/22/16 18:12> - Constitutional Vitals: Temp Pulse Resp BP Pulse Ox 97.8 F 97 17 118/69 92 L 11/22/16 15:40 11/22/16 16:40 11/22/16 16:40 11/22/16 16:40 11/22/16 16:40 Internal Medicine: Result - Labs CBC & Chem 7: 11/22/16 04:09 11/22/16 04:09 - ABG Interpretation ABG results: PT/INR, D-dimer PT 12.5 Seconds (9.4-12.1) H 11/22/16 10:21 - Attending Attestation I examined this patient and my medical decision-making was reviewed with the [employer] SALESPERSON/PA/Advanced Practice Nurse/Resident Physician. I agree with the documented findings, disposition and treatment plan as described except to the extent set forth below. Diminished EF, will undergo LHC as per cardiology.
--- NOTE | 2016-11-22 09:24 | Cardiology Consult Note ---
<Dyllan Tran R - Last Filed: 11/22/16 09:52> Date of Encounter: 11/22/16 Time of Encounter: 09:20 Assessment and Plan (1) CHF (congestive heart failure) Current Visit: Yes Status: Chronic New decrease in EF. Echo 07/2014 LVEF 60-65%, no wall motion abnormalities. Current Echo EF has decreased to 35% with regional wall motion abnormalities. [facility] 01/2014 Unsuccessful attempt at PCI of the calcified chronic total occlusion (RN ELIGIBILITY) to mid RCA complicated by RCA dissection that propagates to the ascending aorta. PTCA/Stent of the Proximal and ostium of the RCA to seal the dissection flap and prevents further propagation. Given new decrease in EF with wall motion abnormalities, recommend ischemic evaluation--LHC. Risks and benefits were discussed, pt is agreeable. Will trial pt lying flat, as he states he coughs when attempting to lie flat. If able to tolerate, will proceed with LHC today. Continue IV Lasix 40mg BID. Recommend strict I/Os, daily weights, sodium and fluid restriction. Continue ARB and BB. Qualifiers: Congestive heart failure type: systolic Congestive heart failure chronicity : acute on chronic Qualified Code(s): I50.23 - Acute on chronic systolic ( congestive) heart failure (2) Atrial fibrillation with RVR Current Visit: Yes Status: Acute A-Fib with mild RVR--12 hour tele AVG HR 105. In setting of COPD exacerbation and CHF. Will increase Toprol XL from 50mg daily to 100mg daily. 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 Discussed alternative agent such as Coumadin, but pt declines. Discussed the R/B/A to full anticoagulation, and patient declines at this time. He understands that not being on a/c predisposes him to an increased risk of stroke and other embolic events. (3) CAD (coronary artery disease), ramona coronary artery Current Visit: Yes Status: Acute Known hx of CAD s/p multiple PCIs. 01/29/2014 [facility] Unsuccessful attempt at PCI of the calcified chronic total occlusion (RN ELIGIBILITY) to mid RCA complicated by RCA dissection that propagates to the ascending aorta. PTCA/Stent of the Proximal and ostium of the RCA to seal the dissection flap and prevents further propagation. Patient had successful PTCA/Drug-Eluting Stent placement in the proximal RCA. Patient had unsuccessful PCI of RN ELIGIBILITY to mid RCA Continue ASA, Statin, BB. Qualifiers: [place] vs. transplanted heart: ramona heart Associated angina: without angina Qualified Code(s): I25.10 - Atherosclerotic heart disease of ramona coronary artery without angina pectoris (4) Cardiomyopathy Current Visit: Yes Status: Acute New decreased EF of 35%, previously 60-65%. New wall motion abnormalities. Presumed ischemic until proven otherwise. Plan for [facility] today if able to lay flat. Continue BB and ARB. Qualifiers: Cardiomyopathy type: unspecified Qualified Code(s): I42.9 - Cardiomyopathy , unspecified Discussion w patient/family: The assessment and plan as outlined above was discussed with the patient and/or family members who expressed understanding and agreement. All questions were answered. Thank you for involving us in the care of your patient. Please call with any questions. I will discuss all the above with Dr. Zurita and make changes as necessary. History of Present Illness Consult date: 11/22/16 Requesting physician: John Ruiz Consult reason: CHF Chief complaint: dyspnea, cough History of present illness: Mr. Julien is a 76 year old male with history of COPD, Afib, PLACIDO, DM, CAD s/p multiple PCI that presented with chief complaint of dyspnea, worsening over the past week and productive cough. He denies chest pain. Also admits to lower extremity edema that has improved with IV Lasix. He has been diagnosed with COPD exacerbation, being treated. He previously had preserved EF on echo in 2013 --60-65%. Echo rechecked during this admission shows EF has declined to 35% with regional wall motion abnormalities. C 01/2014 showed RN ELIGIBILITY mid RCA. He had RCA dissection that propagated to the ascending aorta. PTCA/Stent of the Proximal and ostium of the RCA to seal the dissection flap and prevent further propagation. Troponins have been negative. A-Fib with mild RVR--AVG HR 105 on tele. He is not anticoagulated due to history of rectus sheath hematoma on Xarelto. Has declined other agents in the past. Past Med Surg Social Fam HX - Past Medical History Medical history: arthritis, atrial fibrillation, cancer, COPD, coronary artery disease, diabetes, myocardial infarction, other Psychiatric history: anxiety, depression - Past Surgical History Surgical History: angioplasty/stent, herniorrhaphy - Social History Smoking Status: Never smoker Smokeless Tobacco Status: No Alcohol use: unknown Drug use: none - Family History Father Hx Family Neurologic Disorders: Yes (stroke) Medications and Allergies Docusate [Colace] 200 mg PO BID 11/10/15 [History] Isosorbide MONOnitrate (24 HR) [Imdur] 30 mg PO QAM 11/10/15 [History] Losartan [Cozaar] 25 mg PO QAM 11/10/15 [History] Metformin [Glucophage] 500 mg PO QAM 11/10/15 [History] Metoprolol XL (24 HR) Succ [Toprol Xl] 50 mg PO QAM 11/10/15 [History] Psyllium Husk [Fiber] 2 cap PO HS 11/10/15 [History] Rosuvastatin [Crestor] 20 mg PO HS 11/10/15 [History] Rock Oil/[place]ola-3 Fatty Acids [Fish Oil 500 mg Softgel] 1 cap PO QAM 11/10/15 [ History] Furosemide [Lasix] 40 mg PO QAM 11/13/15 [History] Potassium Chloride 10 meq PO QAM 11/13/15 [History] Levalbuterol Neb [Xopenex Neb] 1.25 mg IH TID #1 vial.neb 11/15/15 [Rx] Budesonide/Formoterol 80/4.5 [Symbicort 80/4.5] 2 puff IH BIDR #1 inhaler 11/21 [Rx] Aspirin Enteric Coated [Aspirin EC] 81 mg PO DAILY #30 tablet. 11/26/15 [Rx] Amoxicillin 875 mg PO BID #28 tablet 11/10/16 [Rx] Allergies No Known Drug Allergies Allergy (Verified 11/10/15 12:38) See Comments All Systems Review: A 10-system review of systems was performed and is negative for pertinent findings except as documented above in the HPI. - Cardiovascular Cardiovascular: as per HPI, dyspnea at rest, dyspnea on exertion, leg edema - Respiratory Respiratory: cough, dyspnea Physical Examination Vital Signs, Last 4 Hours Temp Pulse Resp BP Pulse Ox 11/22/16 07:39 97.9 F 97 17 133/87 91 L Vital Signs Temp Pulse Resp BP Pulse Ox 11/22/16 07:39 97.9 F 97 17 133/87 91 L 01/04/17 03:52 18 96 11/22/16 03:23 97.9 F 101 18 133/76 97 11/21/16 23:51 97.9 F 112 18 146/80 94 L 11/21/16 23:06 19 95 11/21/16 20:45 16 96 11/21/16 19:32 98.1 F 57 15 128/71 96 11/21/16 16:05 16 96 11/21/16 11:06 16 96 11/21/16 10:02 98.1 F 65 16 128/86 96 Intake and Output 11/21/16 11/22/16 11/22/16 23:59 07:59 15:59 Intake Total 490 / 490 850 / 850 500 / 500 Output Total 1200 / 1200 850 / 850 Balance -710 / -710 0 / 0 500 / 500 Intake: Oral 490 / 490 850 / 850 500 / 500 Output: Urine 1200 / 1200 850 / 850 Other: Meal Dinner Percent of Meal Consumed 100% Weight 111.13 kg Blood Glucose* 171 120 Patient Weight 11/22/16 23:59 Weight 111.13 kg General: Conversant, No Apparent Distress HEENT: Atraumatic, Normocephaly, Mucus Membranes Moist Neck: No JVD, Normal carotid pulses Cardiac: Other (irregularly irregular) Lungs: Other (diminished) Neuro: Alert and responsive, No focal deficits noted Abdomen: Soft, Non-Tender Skin: No rashes noted on visualized skin Musculoskeletal: No Chest Wall Tenderness Extremities: No Clubbing, No Cyanosis, No Edema, Normal Pulses Results 11/22/16 04:09 11/22/16 04:09 Lab Results 11/22/16 11/22/16 04:09 04:09 WBC 19.0 H D Hgb 14.1 Hct 42.3 Plt Count 279 Sodium 137 Potassium 3.6 Chloride 100 Carbon Dioxide 27 BUN 25 D Creatinine 0.94 Glucose 140 H Calcium 9.5 Magnesium 2.2 Short CBC 11/22/16 Range/Units 04:09 WBC 19.0 H D (4.3-11.1) K/mcL Hgb 14.1 (12.9-16.9) g/dL Hct 42.3 (37.5-50.1) % Plt Count 279 (140-400) K/mcL Neutrophils # 14.8 H (1.6-8.9) K/mcL BMP 11/22/16 Range/Units 04:09 Sodium 137 (136-145) mEq/L Potassium 3.6 (3.5-4.5) mEq/L Chloride 100 (98-109) mEq/L Carbon Dioxide 27 (19-29) mEq/L BUN 25 D (8-26) mg/dL Creatinine 0.94 (0.72-1.25) mg/dL Glucose 140 H (70-99) mg/dL Calcium 9.5 (8.6-10.8) mg/dL Active Medications Albuterol/Ipratropium (Duoneb) 3 ml IH [id number] HAILEY PRN Reason: Protocol Stop: 05/22/17 20:01 Last Admin: 11/22/16 08:03 Dose: 3 ml Aspirin (Aspirin Ec) 81 mg PO DAILY [facility] Stop: 05/23/17 09:01 Last Admin: 11/21/16 08:58 Dose: 81 mg Budesonide/Formoterol Fumarate (Symbicort) 2 puff IH BIDR HAILEY PRN Reason: Protocol Stop: 05/22/17 22:01 Last Admin: 11/22/16 08:02 Dose: 2 puff Docusate Sodium (Colace) 200 mg PO BID HAILEY PRN Reason: Protocol Stop: 05/22/17 21:01 Last Admin: 11/21/16 19:46 Dose: 200 mg Furosemide (Lasix) 40 mg IVP BID [facility] Stop: 05/22/17 21:01 Last Admin: 11/21/16 19:46 Dose: 40 mg Heparin Sodium (Porcine) (Heparin) 5,000 unit SQ Q12HR [facility]ILEY Stop: 05/22/17 18:01 Last Admin: 11/22/16 06:04 Dose: 5,000 unit Levofloxacin/Dextrose (Levaquin 500mg/100ml) 500 mg in 100 mls @ 100 mls/hr IVPB Q24H HAILEY PRN Reason: Protocol Stop: 05/22/17 17:01 Last Admin: 11/21/16 16:54 Dose: 100 mls/hr Isosorbide Mononitrate (Imdur) 30 mg PO QAM [facility] Stop: 05/23/17 09:01 Last Admin: 11/21/16 08:59 Dose: 30 mg Levalbuterol HCl (Xopenex) 1.25 mg IH TID [facility] Stop: 05/22/17 21:01 Last Admin: 11/22/16 08:03 Dose: Not Given Losartan Potassium (Cozaar) 25 mg PO QAM [facility]ILEY PRN Reason: Protocol Stop: 05/23/17 09:01 Last Admin: 11/21/16 08:58 Dose: 25 mg Magnesium Oxide (Mag-Ox) 400 mg PO DAILY [facility] PRN Reason: Protocol Stop: 05/23/17 09:01 Last Admin: 11/21/16 08:58 Dose: 400 mg Metoprolol Succinate (Toprol Xl) 50 mg PO QAM [facility] Stop: 05/23/17 09:01 Last Admin: 11/21/16 08:58 Dose: 50 mg Naloxone HCl (Narcan) 0.4 mg IVP Q2MIN PRN PRN Reason: Opioid Reversal Stop: 05/22/17 16:35 Potassium Chloride (Potassium Chloride) [facility]: 05/23/17 09:01 Last Admin: 11/21/16 08:58 Dose: 10 meq Prednisone (Prednisone) 40 mg PO DAILY [facility] Stop: 05/24/17 09:01 Rosuvastatin Calcium (Crestor) 20 mg PO HS [facility] Stop: 05/22/17 21:01 Last Admin: 11/21/16 19:47 Dose: 20 mg - Imaging and Cardiology Chest Xray: report reviewed Echo: report reviewed (07/31/14--Impressions: LVEF 60-65%. Mild concentric left ventricular hypertrophy. Diastolic function and valves not evaluated on this limited study. Aside from atypical septal motion due to a bundle branch block, no wall motion abnormalities seen on this study.) Cardiac cath: report reviewed (01/29/14--Impressions: Unsuccessful attempt at PCI of the calcified chronic total occlusion (RN ELIGIBILITY) to mid RCA complicated by RCA dissection that propagates to the ascending aorta. PTCA/Stent of the Proximal and ostium of the RCA to seal the dissection flap and prevents further propagation.) - EKG Interpretation EKG results cardiology: personally reviewed (A-Fib RVR rate 109), other (12 hour tele AVG HR 105, A-Fib.) Consult Discharge Plan - Plan Referrals: Gustabo Ross DO [Primary Care Provider] - <Alix Zurita - Last Filed: 11/22/16 12:31> Date of Encounter: 11/22/16 Assessment and Plan Discussion w patient/family: The assessment and plan as outlined above was discussed with the patient and/or family members who expressed understanding and agreement. All questions were answered. Thank you for involving us in the care of your patient. Please call with any questions. History of Present Illness History of present illness: Mr. Julien is a 76 year old male All Systems Review: A 10-system review of systems was performed and is negative for pertinent findings except as documented above in the HPI. Physical Examination Vital Signs, Last 4 Hours Temp Pulse Resp BP Pulse Ox 11/22/16 11:47 97.7 F 96 15 104/47 93 L 11/22/16 09:39 91 L Results 11/22/16 04:09 11/22/16 04:09 Lab Results 11/22/16 11/22/16 11/22/16 04:09 04:09 10:21 WBC 19.0 H D Hgb 14.1 Hct 42.3 Plt Count 279 INR 1.2 Sodium 137 Potassium 3.6 Chloride 100 Carbon Dioxide 27 BUN 25 D Creatinine 0.94 Glucose 140 H Calcium 9.5 Magnesium 2.2 - Attending Attestation I examined this patient and my medical decision-making was reviewed with the FOREST ECONOMIST/PA/Advanced Practice Nurse/Resident Physician. I agree with the documented findings, disposition and treatment plan. Mr. Julien presents with worsening SOB and findings of newly reduced LVEF and new wall motion abnormalities. Prior echo in 2013 demonstrated normal LV function. Findings are consistent with acute decompensated systolic heart failure. Because of new cardiomyopathy, and known CAD, we have recommended pursuing a [facility] for consideration of reperfusion. The R/B/A of the procedure were discussed with the patient who expressed understanding and agreement. He will continue receiving IV lasix, statin, BB and antiplatelet therapy. He is already on ARB.
[2016-11-22] MEDS: Aspirin Enteric Coated 81 MG Tablet PO SCH (09:27)
[2016-11-22] MEDS: Furosemide 40 MG/4 ML VIAL IVP SCH (09:27)
[2016-11-22] MEDS: predniSONE 20 MG TABLET PO SCH (09:27)
[2016-11-22] MEDS: Isosorbide MONOnitrate (24 HR) 30 MG TAB.ER.24H PO SCH (09:27)
[2016-11-22] MEDS: Metoprolol XL (24 HR) Succ 50 MG TAB.ER.24H PO SCH (09:28)
[2016-11-22] MEDS: Magnesium Oxide 400 MG TABLET PO SCH (09:28)
[2016-11-22] MEDS ORDERED: Metoprolol XL (24 HR) Succ 50 MG TAB.ER.24H PO ONE (09:58)
[2016-11-22 10:52] LABS: INR 1.2; Prothrombin Time 12.5 Seconds (9.4-12.1)
[2016-11-22] MEDS ORDERED: *HR* Heparin 10,000 UNIT/10 ML VIAL ONE (12:37)
[2016-11-22] MEDS ORDERED: 0.9 % Sodium Chloride 1,000 ML ONE ×2 (12:37→13:52)
[2016-11-22] MEDS ORDERED: Verapamil 5 MG/2 ML VIAL ONE (12:37)
[2016-11-22] MEDS ORDERED: Heparin 1,000 UNITS/500 mL NS 500 ML ONE (12:37)
[2016-11-22] MEDS ORDERED: Nitroglycerin 1,000 MCG/10 ML VIAL IV ONE (12:38)
[2016-11-22] MEDS ORDERED: *HR* Midazolam HCl 2 MG/2 ML VIAL ONE (13:24)
[2016-11-22] MEDS ORDERED: *HR* FentaNYL (PF) 100 MCG/2 ML VIAL ONE (13:24)
--- NOTE | 2016-11-22 14:04 | Pre-Sedation Evaluation ---
Pre-sedation evaluation - Pre-sedation checklist Date of procedure: 11/22/16 Procedure: heart cath Recent Vitals: Last Vital Signs Temp 97.7 F 11/22/16 11:47 Pulse 96 11/22/16 11:47 Resp 15 11/22/16 11:47 BP 104/47 11/22/16 11:47 Pulse Ox 93 L 11/22/16 11:47 H&P (including ROS) documented in medical record: Yes Dietary Status: No solid food in preceding 4 hrs and no liquid in preceding 2 hrs Dentition: No loose teeth or bridges ASA Classification *see protocol: CLASS II-Mild systemic disease Plan of Care: Pt appropriate candidate for procedure/moderate/conscious sedation , Risks/benefits of procedure/sedation discussed w/ patient/family
--- NOTE | 2016-11-22 14:25 | Pre-Sedation Evaluation ---
Pre-sedation evaluation - Pre-sedation checklist Date of procedure: 11/22/16 Procedure: heart cath Recent Vitals: Last Vital Signs Temp 97.7 F 11/22/16 11:47 Pulse 96 11/22/16 11:47 Resp 16 11/22/16 11:47 BP 104/47 11/22/16 11:47 Pulse Ox 93 L 11/22/16 11:47 H&P (including ROS) documented in medical record: Yes Dietary Status: No solid food in preceding 4 hrs and no liquid in preceding 2 hrs Dentition: No loose teeth or bridges ASA Classification *see protocol: CLASS II-Mild systemic disease Plan of Care: Pt appropriate candidate for procedure/moderate/conscious sedation , Risks/benefits of procedure/sedation discussed w/ patient/family
[2016-11-22] MEDS: Levofloxacin 500 MG/100 ML 500 MG/100 ML BAG IVPB SCH (16:57)
[2016-11-23] MEDS: Ipratropium/Albuterol Neb 3 ML IH SCH ×5 (00:23→15:26)
[2016-11-23 05:09] LABS: Basophils % 0.1 %; Eosinophils % 0.1 %; Hemoglobin 13.2 g/dL (12.9-16.9); Immature Granulocytes % 0.7 % (0-4); Lymphocytes # 2.1 K/mcL (0.6-4.6); Lymphocytes % 20.6 %; Mean Corpuscular Hemoglobin 29.9 pg (28.0-33.3); Mean Corpuscular Volume 90.5 fL (83.0-100.0); Monocytes # 1.4 K/mcL (0.0-1.3); Monocytes % 13.4 %; Neutrophils # 6.6 K/mcL (1.6-8.9); Platelet Count 270 K/mcL (140-400); Red Blood Count 4.42 M/mcL (4.19-5.50); Red Cell Distribution Width 14.2 % (11.5-14.5); Segmented Neutrophils % 65.1 %
[2016-11-23 05:26] LABS: BUN/Creatinine Ratio 24 (6-26); Blood Urea Nitrogen 24 mg/dL (8-26); Calcium 8.8 mg/dL (8.6-10.8); Carbon Dioxide 33 mEq/L (19-29); Chloride 101 mEq/L (98-109); Glucose 117 mg/dL (70-99); Magnesium 2.2 mg/dL (1.6-2.6); Osmolality,Calculated 295 (280-300); Potassium 3.5 mEq/L (3.5-4.5); Sodium 140 mEq/L (136-145); eGFR For African Americans > 60 (> 60); eGFR For Non-African Americans > 60 (> 60)
[2016-11-23] MEDS: *HR* Heparin 5,000 UNIT/ML VIAL SQ SCH (06:01)
[2016-11-23] MEDS: Budesonide/Formoterol 80/4.5 MDI IH SCH (08:15)
[2016-11-23] MEDS: Levalbuterol Neb 1.25 MG/3 ML IH SCH ×2 (08:19→15:39)
[2016-11-23] MEDS ORDERED: Metoprolol XL (24 HR) Succ 50 MG TAB.ER.24H PO SCH (09:00)
--- NOTE | 2016-11-23 09:26 | Invasive Diagnostic Lab ---
Name: Immanuel Julien Date of Study: 11/22/2016 Date: 1940 Ht: 180.3 cm /71.0 in Medical Record#: [id number] Age: 76 Wt: 111.4 kg / 245.60 lb Account/Order#: [id number] Gender: Male BSA: 2.3 Order #: [id number] Fluoro Dose: 338 mGy BMI: 34.27 Procedure Physician: Huey Shepard MD, FACC Referring MD: Referring MD: Procedures Performed: LEFT HEART CATH Indications: Unstable Angina, New cardiomyopathy Impressions: There is severe one vessel coronary artery disease - RCA ACTIVITIES COUNSELOR. No significant change in anatomy since 2013 when EF was normal. There is severe LV Dysfunction EF 20-25% Recommendations: Optimal medical therapy of patient's disease. Aggressive risk factor modification. History/Risk Factors: Diabetes Family History of CAD Chronic Lung Disease Prior MA Previous PCI Procedure Access obtained in the right Femoral artery by percutaneous puncture Complications: None Contrast: Isovue 65ml Closure Device: Manual Compression Hemodynamics: Pressures Site Systolic/ A Wave Diastolic/ V Wave End Diastolic/ Mean HR AO 109 82 95 96 AO 110 87 99 103 LV 127 10 25 102 LV 125 14 28 107 AO 107 60 86 100 LV Ventriculography Ejection Method: LV Gram Ejection Fraction: 20-25% Wall Motion: SOTO Anterobasal Severe Hypokinesis Anterolateral Severe Hypokinesis Apical: Severe Hypokinesis Inferoapical Severe Hypokinesis Inferobasal Severe Hypokinesis Coronary Dominance: right Lesion Findings/Interventions * Left Main Coronary Artery There is a 20% stenosis in the LMCA. * Left Anterior Descending There is a proximal 50% stenosis and mid 40% stenosis * Circumflex There is a 40% stenosis in the Mid Circumflex. * Right Coronary Artery There is a 100% stenosis in the Mid RCA. SWATI 1 flow into mid distal RCA. The lesion has collaterals which feed from left to right. Patent RCA stents Updated by RT Lisandra (R) on 11/22/2016 2:44:22 PM Huey Shepard MD, FACC electronically signed on 11/23/2016 9:22:36 AM with status of Final
[2016-11-23] MEDS: Aspirin Enteric Coated 81 MG Tablet PO SCH (09:43)
[2016-11-23] MEDS: predniSONE 20 MG TABLET PO SCH (09:43)
[2016-11-23] MEDS: Magnesium Oxide 400 MG TABLET PO SCH (09:43)
[2016-11-23] MEDS: Isosorbide MONOnitrate (24 HR) 30 MG TAB.ER.24H PO SCH (09:43)
[2016-11-23] MEDS ORDERED: Potassium Chloride Elixir 20 MEQ/15 ML UDC PO ONE (10:28)
[2016-11-23 11:04] VITALS: BP 135/84
--- NOTE | 2016-11-23 12:19 | Cardiology Progress Note ---
Date of Encounter: 11/23/16 Time of Encounter: 12:14 Assessment and Plan (1) CHF (congestive heart failure) Current Visit: Yes Status: Chronic New decrease in EF. Echo 07/2014 LVEF 60-65%, no wall motion abnormalities. Current Echo EF has decreased to 35% with regional wall motion abnormalities. [facility] yesterday revealed severe single vessel CAD--known INSTALLATION SERVICE REPRESENTATIVE of RCA. No significant change in anatomy since 2013 when EF was normal. Severe LV dysfunction EF 20-25%. On IV Lasix 40mg BID. Recommend strict I/Os, daily weights, sodium and fluid restriction. Continue ARB and BB. Recommend switching to PO maintenance dose of Lasix at discharge. Follow-up in 1-2 weeks after discharge. Will need EF rechecked in 3 months as outpt. Cardiology signing off. Reconsult PRN. Qualifiers: Congestive heart failure type: systolic Congestive heart failure chronicity : acute on chronic Qualified Code(s): I50.23 - Acute on chronic systolic ( congestive) heart failure (2) Atrial fibrillation with RVR Current Visit: Yes Status: Acute Rate improved with Toprol XL increase yesterday to 100mg daily. --12 hour tele AVG HR 90. 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 Discussed alternative agent such as Coumadin. Pt states he will consider and further discuss at follow-up appointment. Discussed the R/B/A to full anticoagulation. He understands that not being on a/c predisposes him to an increased risk of stroke and other embolic events. (3) CAD (coronary artery disease), [place] coronary artery Current Visit: Yes Status: Acute Known hx of CAD s/p multiple PCIs. [facility] yesterday--severe single vessel CAD--RCA INSTALLATION SERVICE REPRESENTATIVE. No significant change in anatomy since 2013 when EF was normal. Continue ASA, Statin, BB. Qualifiers: [place] vs. transplanted heart: [place] heart Associated angina: without angina Qualified Code(s): I25.10 - Atherosclerotic heart disease of [place] coronary artery without angina pectoris (4) Cardiomyopathy Current Visit: Yes Status: Acute New decreased EF of 35%, previously 60-65%. New wall motion abnormalities. [facility] yesterday--known RCA INSTALLATION SERVICE REPRESENTATIVE. No significant change in anatomy since 2013 when EF was normal. Nonischemic in nature. Continue BB, ARB. Recommend rechecking Echo in 3 months to re-evaluate EF. If < 35%, need to consider ICD. Qualifiers: Cardiomyopathy type: unspecified Qualified Code(s): I42.9 - Cardiomyopathy , unspecified Discussion w patient/family: The assessment and plan as outlined above was discussed with the patient and/or family members who expressed understanding and agreement. All questions were answered. Thank you for involving us in the care of your patient. Please call with any questions. I will discuss all the above with Dr. Zurita and make changes as necessary. Subjective Principal diagnosis: CMP, CAD Interval history: LHC yesterday revealed severe 1 vessel CAD--INSTALLATION SERVICE REPRESENTATIVE RCA, known. No significant changes in anatomy since 2013 cath. Severe LV dysfunction EF 20-25%. Pt denies chest pain overnight. Reports improved dyspnea, productive cough persists-- yellow in color. 12 hour tele AVG HR 90, A-Fib. Objective Vital Signs, Last 4 Hours Temp Pulse Resp BP Pulse Ox 11/23/16 11:46 18 96 11/23/16 11:02 98.0 F 91 16 135/84 90 L 11/23/16 09:40 93 L 11/23/16 08:16 18 93 L Vital Signs Temp Pulse Resp BP Pulse Ox 11/23/16 11:46 18 96 11/23/16 11:02 98.0 F 91 16 135/84 90 L 11/23/16 09:40 93 L 11/23/16 08:16 18 93 L 11/23/16 07:20 97.4 F L 69 18 139/86 98 11/23/16 04:55 14 95 11/23/16 04:20 98.3 F 103 14 130/81 94 L 11/23/16 00:23 18 96 11/22/16 23:57 98.0 F 99 16 147/90 95 11/22/16 21:00 97 11/22/16 20:19 18 97 11/22/16 20:03 98.5 F 98 16 144/56 97 11/22/16 17:40 108 17 111/72 91 L 11/22/16 16:40 97 17 118/69 92 L 11/22/16 16:20 18 92 L 11/22/16 16:10 96 17 93 L 11/22/16 15:40 97.8 F 101 17 112/73 93 L 11/22/16 15:15 117 17 126/75 92 L 11/22/16 15:00 102 16 126/78 93 L Intake and Output 11/22/16 11/23/16 11/23/16 23:59 07:59 15:59 Intake Total 100 / 100 360 / 360 Balance 100 / 100 360 / 360 Intake: IV Fluids 100 / 100 Levaquin 500mg/100mL 500 100 / 100 mg In 100 ml @ 100 mls/hr IVPB Q24H [facility] Rx#: [id number] Oral 360 / 360 Other: Meal Breakfast Percent of Meal Consumed 100% Weight 112.5 kg Blood Glucose* 176 Patient Weight 11/23/16 23:59 Weight 112.5 kg General: Conversant, No Apparent Distress HEENT: Atraumatic, Normocephaly, Mucus Membranes Moist Neck: No JVD, Normal carotid pulses Cardiac: Other (irregularly irregular) Lungs: Other (rhonchi) Neuro: Alert and responsive, No focal deficits noted Abdomen: Soft, Non-Tender Skin: Other (right femoral access site healing well. No bleeding, hematoma or ecchymosis noted.) Musculoskeletal: No Chest Wall Tenderness Extremities: No Clubbing, No Cyanosis, No Edema, Normal Pulses Results 11/23/16 04:30 11/23/16 04:30 Lab Results 11/23/16 11/23/16 04:30 04:30 WBC 10.2 Hgb 13.2 Hct 40.0 Plt Count 270 Sodium 140 Potassium 3.5 Chloride 101 Carbon Dioxide 33 H BUN 24 Creatinine 1.02 Glucose 117 H Calcium 8.8 Magnesium 2.2 Short CBC 11/23/16 Range/Units 04:30 WBC 10.2 (4.3-11.1) K/mcL Hgb 13.2 (12.9-16.9) g/dL Hct 40.0 (37.5-50.1) % Plt Count 270 (140-400) K/mcL Neutrophils # 6.6 (1.6-8.9) K/mcL BMP 11/23/16 Range/Units 04:30 Sodium 140 (136-145) mEq/L Potassium 3.5 (3.5-4.5) mEq/L Chloride 101 (98-109) mEq/L Carbon Dioxide 33 H (19-29) mEq/L BUN 24 (8-26) mg/dL Creatinine 1.02 (0.72-1.25) mg/dL Glucose 117 H (70-99) mg/dL Calcium 8.8 (8.6-10.8) mg/dL Active Medications Albuterol/Ipratropium (Duoneb) 3 ml IH [id number] [facility] PRN Reason: Protocol Stop: 05/22/17 20:01 Last Admin: 11/23/16 11:46 Dose: 3 ml Aspirin (Aspirin Ec) 81 mg PO DAILY [facility] Stop: 05/23/17 09:01 Last Admin: 11/23/16 09:43 Dose: 81 mg Budesonide/Formoterol Fumarate (Symbicort) 2 puff IH BIDR [facility] PRN Reason: Protocol Stop: 05/22/17 22:01 Last Admin: 11/23/16 08:15 Dose: 2 puff Docusate Sodium (Colace) 200 mg PO BID [facility] PRN Reason: Protocol Stop: 05/22/17 21:01 Last Admin: 11/23/16 09:43 Dose: 200 mg Heparin Sodium (Porcine) (Heparin) 5,000 unit SQ Q12HR [facility] Stop: 05/22/17 18:01 Last Admin: 11/23/16 06:01 Dose: 5,000 unit Isosorbide Mononitrate (Imdur) 30 mg PO QAM [facility] Stop: 05/23/17 09:01 Last Admin: 11/23/16 09:43 Dose: 30 mg Levalbuterol HCl (Xopenex) 1.25 mg IH TID [facility] Stop: 05/22/17 21:01 Last Admin: 11/23/16 08:19 Dose: Not Given Levofloxacin (Levaquin) 500 mg PO Q24H [facility] PRN Reason: Protocol Stop: 05/25/17 17:01 Losartan Potassium (Cozaar) 25 mg PO QAM [facility] PRN Reason: Protocol Stop: 05/23/17 09:01 Last Admin: 11/23/16 09:43 Dose: 25 mg Magnesium Oxide (Mag-Ox) 400 mg PO DAILY [facility] PRN Reason: Protocol Stop: 05/23/17 09:01 Last Admin: 11/23/16 09:43 Dose: 400 mg Metoprolol Succinate (Toprol Xl) 100 mg PO QAM [facility] Stop: 05/25/17 09:01 Last Admin: 11/23/16 09:44 Dose: 100 mg Naloxone HCl (Narcan) 0.4 mg IVP Q2MIN PRN PRN Reason: Opioid Reversal Stop: 05/22/17 16:35 Potassium Chloride (Potassium Chloride) 10 meq PO QAM [facility] Stop: 05/23/17 09:01 Last Admin: 11/23/16 09:43 Dose: 10 meq Prednisone (Prednisone) 40 mg PO DAILY [facility] Stop: 05/24/17 09:01 Last Admin: 11/23/16 09:43 Dose: 40 mg Rosuvastatin Calcium (Crestor) 20 mg PO HS [facility] Stop: 05/22/17 21:01 Last Admin: 11/22/16 21:23 Dose: 20 mg - Imaging and Cardiology Chest Xray: report reviewed Echo: report reviewed Cardiac cath: report reviewed - EKG Interpretation EKG results cardiology: other (12 hour tele AVG HR 90, A-Fib.) Consult Discharge Plan - Plan Additional Instructions: RISK FACTORS: STOP SMOKING: If you smoke, STOP. Smoking or tobacco use significantly increases your risk of heart disease because nicotine causes the arteries to narrow or constrict. It also causes fats to stick to the artery. Your chances of having a heart attack are greatly increased if you continue to smoke. For more information, call the education line for smoking cessation 7-975-BPWLNXU EAT A LOW FAT/CHOLESTEROL/SODIUM DIET: This diet may help reduce your chances of having a heart attack. LIFTING: Avoid lifting anything more than 10 pounds for 5-7 days Prior to straining, laughing, sneezing and/or coughing, apply manual pressure directly over insertion site. ACTIVITY: You may walk or climb stairs as tolerated You can resume sexual activity as tolerated In general, you are encouraged to engage in a minimum of 30 minutes or more of moderate intensity physical activity, such as brisk walking, daily or at least 3 -4 times weekly BATHING Do not submerge the site into water (bath tub, hot tub, swimming pool) for 1 week. This can be a source for infection into the blood stream. You may shower after 24 hours SITE CARE: After 24 hours, you may remove the dressing and leave the site open to air. Keep the site clean and dry. Clean gently and pat dry. You can expect bruising and tenderness that gradually resolve within a week or two. Return to work as instructed per your physician Resume driving as instructed per physician Keep all scheduled follow up appointments Resume medications as instructed IMPORTANT: If prescribed a Platelet Aggregation Inhibitor such as, Plavix, Brilinta or Effient: Duration of therapy is minimum one year These medications are often used in combination with Aspirin in prevention of future heart attacks Never discontinue unless consult with your Plant Safety Engineer STROKE (CVA) Risk factors for a stroke are: Age, cigarette smoking, diabetes, excessive alcohol consumption, family history, high blood pressure, overweight, physical inactivity, prior stroke, heart attack, diagnosis of carotid artery stenosis or other artery disease. Warning signs: Sudden numbness or weakness of the face, arm or leg; especially on one side of the body, sudden confusion, trouble speaking or understanding, sudden trouble seeing in one or both eyes, sudden trouble walking, dizziness, loss of balance or coordination, sudden severe headache with no cause. Call 911 or go to the Emergency Room. CONGESTIVE HEART FAILURE: If you have been diagnosed with Congestive Heart Failure (CHF) and your symptoms return, make an appointment with your physician Weigh yourself daily. Notify your physician if you have a weight gain of two or more pounds in one day or five or more pounds in one week. If you experience any difficulty breathing, please call 911 BLEEDING: Although the risk of bleeding is minimal, it can happen. If you have any bleeding from the site, apply firm pressure above the puncture site for 10-15 minutes. If the bleeding does not stop, continue manual pressure and call 911 Contact your physician if: You develop a fever greater than 101 degrees Fahrenheit Your site becomes reddened or has any drainage You have an increase in pain or burning at the site or if a large knot forms at the site. If you experience chest pain, shortness of breath, dizziness, or extreme tiredness, stop the activity and rest. Please notify your physicians office if you experience any of these symptoms and they are not relieved by rest please call 911! Referrals: Gustabo Ross DO [Primary Care Provider] -
--- NOTE | 2016-11-23 13:55 | Discharge Summary ---
<Paola Mccrary - Last Filed: 11/23/16 15:31> Date of Encounter: 11/23/16 Time of Encounter: 11:10 - Discharge Diagnosis (1) CHF (congestive heart failure) Priority: Primary Status: Acute Qualifiers: Congestive heart failure type: systolic Congestive heart failure chronicity : acute on chronic Qualified Code(s): I50.23 - Acute on chronic systolic ( congestive) heart failure (2) COPD exacerbation Priority: Primary Status: Acute (3) Atrial fibrillation with RVR Priority: Secondary Status: Chronic (4) Elevated troponin Priority: Secondary Status: Acute (5) CAD (coronary artery disease), [place] coronary artery Priority: Secondary Status: Chronic Qualifiers: [place] vs. transplanted heart: [place] heart Associated angina: without angina Qualified Code(s): I25.10 - Atherosclerotic heart disease of [place] coronary artery without angina pectoris (6) PLACIDO on CPAP Priority: Secondary Status: Chronic (7) DVT prophylaxis Priority: Secondary Status: Acute - Discharge Medications Prescriptions: Furosemide [Lasix] 40 mg PO QAM #60 tablet Levofloxacin [Levaquin] 500 mg PO Q24H #3 tablet Magnesium Oxide [Mag-Ox] 400 mg PO DAILY #30 tablet Metoprolol XL (24 HR) Succ [Toprol Xl] 100 mg PO QAM #60 tab.er.24h Potassium Chloride 20 meq PO QAM #60 tab.er.prt PredniSONE 40 mg PO DAILY #6 tablet Home Medications: Docusate [Colace] 200 mg PO BID 11/10/15 [History] Isosorbide MONOnitrate (24 HR) [Imdur] 30 mg PO QAM 11/10/15 [History] Losartan [Cozaar] 25 mg PO QAM 11/10/15 [History] Metformin [Glucophage] 500 mg PO QAM 11/10/15 [History] Psyllium Husk [Fiber] 2 cap PO HS 11/10/15 [History] Rosuvastatin [Crestor] 20 mg PO HS 11/10/15 [History] [place] Oil/[place]-3 Fatty Acids [Fish Oil 500 mg Softgel] 1 cap PO QAM 11/10/15 [ History] Levalbuterol Neb [Xopenex Neb] 1.25 mg IH TID #1 vial.neb 11/15/15 [Rx] Budesonide/Formoterol 80/4.5 [Symbicort 80/4.5] 2 puff IH BIDR #1 inhaler 11/21 [Rx] Aspirin Enteric Coated [Aspirin EC] 81 mg PO DAILY #30 tablet. 11/26/15 [Rx] Furosemide [Lasix] 40 mg PO QAM #60 tablet 11/23/16 [Rx] Levofloxacin [Levaquin] 500 mg PO Q24H #3 tablet 11/23/16 [Rx] Magnesium Oxide [Mag-Ox] 400 mg PO DAILY #30 tablet 11/23/16 [Rx] Metoprolol XL (24 HR) Succ [Toprol Xl] 100 mg PO QAM #60 tab.er.24h 11/23/16 [Rx ] Potassium Chloride 20 meq PO QAM #60 tab.er.prt 11/23/16 [Rx] PredniSONE 40 mg PO DAILY #6 tablet 11/23/16 [Rx] Allergies/Adverse Reactions: Allergies No Known Drug Allergies Allergy (Verified 11/10/15 12:38) See Comments Date of admission: 11/22/16 15:53 Primary care physician: Gustabo Ross DO Consults: Cardiology - CHF exacerbation with new reduced EF Discharging clinician: John Ruiz Anticipated date of discharge: 11/23/16 - Patient Status Disposition: Home, Self-Care Condition: Fair Functional capacity at discharge: independent ambulation Overall status at discharge: patient is progressing back to baseline - Discharge Instructions Follow Up With: Gustabo Ross DO [Primary Care Provider] - 11/30/16 4:00 pm Alix Zurita DO [Partnered Physician] - 11/29/16 9:45 am (1-2 weeks, hospital f/u CHF exacerbation HFref) Additional Instructions: RISK FACTORS: STOP SMOKING: If you smoke, STOP. Smoking or tobacco use significantly increases your risk of heart disease because nicotine causes the arteries to narrow or constrict. It also causes fats to stick to the artery. Your chances of having a heart attack are greatly increased if you continue to smoke. For more information, call the education line for smoking cessation 7-037-WHNQSZN EAT A LOW FAT/CHOLESTEROL/SODIUM DIET: This diet may help reduce your chances of having a heart attack. LIFTING: Avoid lifting anything more than 10 pounds for 5-7 days Prior to straining, laughing, sneezing and/or coughing, apply manual pressure directly over insertion site. ACTIVITY: You may walk or climb stairs as tolerated You can resume sexual activity as tolerated In general, you are encouraged to engage in a minimum of 30 minutes or more of moderate intensity physical activity, such as brisk walking, daily or at least 3 -4 times weekly BATHING Do not submerge the site into water (bath tub, hot tub, swimming pool) for 1 week. This can be a source for infection into the blood stream. You may shower after 24 hours SITE CARE: After 24 hours, you may remove the dressing and leave the site open to air. Keep the site clean and dry. Clean gently and pat dry. You can expect bruising and tenderness that gradually resolve within a week or two. Return to work as instructed per your physician Resume driving as instructed per physician Keep all scheduled follow up appointments Resume medications as instructed IMPORTANT: If prescribed a Platelet Aggregation Inhibitor such as, Plavix, Brilinta or Effient: Duration of therapy is minimum one year These medications are often used in combination with Aspirin in prevention of future heart attacks Never discontinue unless consult with your Laborer Filter Plant STROKE (CVA) Risk factors for a stroke are: Age, cigarette smoking, diabetes, excessive alcohol consumption, family history, high blood pressure, overweight, physical inactivity, prior stroke, heart attack, diagnosis of carotid artery stenosis or other artery disease. Warning signs: Sudden numbness or weakness of the face, arm or leg; especially on one side of the body, sudden confusion, trouble speaking or understanding, sudden trouble seeing in one or both eyes, sudden trouble walking, dizziness, loss of balance or coordination, sudden severe headache with no cause. Call 911 or go to the Emergency Room. CONGESTIVE HEART FAILURE: If you have been diagnosed with Congestive Heart Failure (CHF) and your symptoms return, make an appointment with your physician Weigh yourself daily. Notify your physician if you have a weight gain of two or more pounds in one day or five or more pounds in one week. If you experience any difficulty breathing, please call 911 BLEEDING: Although the risk of bleeding is minimal, it can happen. If you have any bleeding from the site, apply firm pressure above the puncture site for 10-15 minutes. If the bleeding does not stop, continue manual pressure and call 911 Contact your physician if: You develop a fever greater than 101 degrees Fahrenheit Your site becomes reddened or has any drainage You have an increase in pain or burning at the site or if a large knot forms at the site. If you experience chest pain, shortness of breath, dizziness, or extreme tiredness, stop the activity and rest. Please notify your physicians office if you experience any of these symptoms and they are not relieved by rest please call 911! - Diet and Activity Activity: increase activity as tolerated, wear oxygen at all times Diet: low fat, low cholesterol (fluid restriction 1.8L daily.) Hospital course: Mr. Julien is a 76 year old male with past medical history hypertension, hyperlipidemia, obesity, obstructive sleep apnea, CAD, COPD. Patient seen 11/10/16, To urgent care with similar symptoms, sent home with prescription amoxicillin 875 mg by mouth twice a day for 2 week course. He would present to [facility] with worsening shortness of breath, as well as tachycardia, prompting further evaluation on 11/20/2016. Past history Chronic atrial fibrillation, was previously on several toe, but then developed hematoma of rectal sheath during hospitalization 11/24/2015. Xarelto was subsequently stopped, cardiology and hematology/oncology had recommended a period without full anticoagulation, consideration for Pradaxa or coumadin. Patient ultimately declined any anticoagulation, but continued on ASA and Plavix. Patient started on empiric antibiotic Levaquin, and steroids for COPD exacerbation. Sputum, blood cultures, influenza A/B negative. Lower extremity swelling prompted repeat echo to evaluate degree of heart failure. Patient had cardiac diet with fluid restriction, diuresis regimen with improvement in symptoms and swelling. 11/21/16 Echo EF 35%, regional WMA, indeterminate diastolic function due to Afib, no significant VHD/PAH Newly reduced EF, with WMA. Due to reduced EF, prompted cardiology consultation, recommend for LHC which patient agreed. LHC revealed severe single vessel CAD--known HOOKER UP of RCA. No significant change in anatomy since 2013 when EF was normal. Severe LV dysfunction EF 20-25%. Recommendation for optimal medical therapy, to continue ARB, BB, strict I/Os, daily weights, sodium and fluid restriction. Patient will be started on daily 40mg Lasix on discharge, along with potassium and magnesium repletement regimen. He will finish 3 more days of Levaquin and Prednisone therapy. Advised to follow-up with Cardiology 1-2 weeks after discharge, anticipate repeat echo in 3 months as outpatient. I counseled the patient extensively on strict adherence to fluid restricted diet and to sodium intake. At time of discharge, patient is clinically improved, hemodynamically stable, progressing to baseline, and agreeable to plan of care. Advised to seek immediate medical attention for any new or worsening symptoms and he voices understanding. The patient is on chronic supplemental oxygen and did express a desire for portable concentrator, which was denied by his insurance while hospitalized. He was instructed to bring the Rx to his PCP for further care. - Time Spent with Patient Total time spent providing and/or coordinating discharge services: Greater than 30 minutes - Constitutional Vitals: Temp Pulse Resp BP Pulse Ox 98.0 F 91 18 135/84 96 11/23/16 11:02 11/23/16 11:02 11/23/16 11:46 11/23/16 11:02 11/23/16 11:46 General appearance: Present: disheveled, A&O X 3, answers questions appropriately - Head Head exam: Present: atraumatic, normocephalic - Eye Eye exam: Present: EOMI, sclera anicteric - ENT ENT exam: Present: mucous membranes moist - Neck Neck exam general surgery: Present: supple, trachea midline - Respiratory Respiratory exam: Present: rhonchi (scant ronchi, no wheeze). Absent: stridor, wheezes - Cardiovascular Cardiovascular exam: Present: +S1, +S2. Absent: JVD - GI/Abdominal GI/Abdominal exam: Present: soft, no peritoneal signs. Absent: tenderness - Extremities Exam Extremities exam: Present: pedal edema (trace if any, much improved from previous), warm, radial pulses palpable and symetrical <John Ruiz - Last Filed: 11/23/16 18:23> Date of admission: 11/22/16 15:53 Primary care physician: Gustabo Ross DO Hospital course: Mr. Julien is a 76 year old male - Time Spent with Patient Total time spent providing and/or coordinating discharge services: - Constitutional Vitals: Temp Pulse Resp BP Pulse Ox 98.0 F 91 20 135/84 93 L 11/23/16 11:02 11/23/16 11:02 11/23/16 15:26 11/23/16 11:02 11/23/16 15:26 - Attending Attestation I examined this patient and my medical decision-making was reviewed with the WEBSPHERE CONSULTANT/PA/Advanced Practice Nurse/Resident Physician. I agree with the documented findings, disposition and treatment plan as described except to the extent set forth below. Patient for discharge and to continue with outpatient management of CHF and COPD.
[2016-11-23] MEDS ORDERED: levoFLOXacin 500 MG TABLET PO SCH (17:00)
--- NOTE | 2016-12-27 10:32 | Invasive Diagnostic Lab Proc ---
Name: Immanuel Julien Date of Study: 11/22/2016 Date: 1940 Ht: 71.0in Medical Record#: [id number] Age: 76 Wt: 245.60lb Gender: Male BSA: 2.3 Order #: [id number] BMI: 34.27 Physicians Procedure Physician: Huey Shepard MD, [facility] Referring MD: Referring MD: Staff Name Position Time In Julissa Swanson RN Wallpaper Hanger 01:24 PM Joceline Swan RT (R) Scrub 01:24 PM Selena Awad RN Monitor 01:52 PM Helena Maciel RT (R) RT 02:24 PM Indications Indication Unstable Angina New cardiomyopathy Procedures Performed Procedure L HRT ARTERY/VENTRICLE ANGIO MOD SED OTH PHYS/QHP 5/>YRS MOD SED OTHER PHYS/QHP EA Pre-Procedure Checklist Informed consent is complete signed and on chart. H\\T\\P is on chart. ID band is on and ID verified with patient. Patient NPO for procedure The procedure was described for the patient and questions were answered. Blood Pressure: 133/87 ECG is on chart. Rhythm: Afib Plan of Care Patient will tolerate the procedure without complications. Adequate level of comfort will be maintained. Hemodynamics will remain stable Patient will recover from procedure without complications. Respiratory function will be maintained. Cardiac rhythm will remain stable. Patient temperature will be maintained. Patient and/or family have verbalized understanding of the procedure. Patient Education Chief Complaint/Reason for Test: Cardiac Cath Developmental Category: Geriatric (65+ years) Developmentally Appropriate for Age: Yes Learning Barriers: None Education Needs: Procedure Education Method: Written Information Taught: Cardiac Cath Educational Evaluation: Able to repeat information Intravenous Access Time IV Size Location DC'd Fluid/Drip Rate Units RN 01:50 PM 18g 1 1/4" Peripheral-Lock On Arrival Lt Antecubital 0.9NaCl 25 ml/hr Julissa Swanson RN Allergies No Known Drug Allergies NO KNOWN ALLERGIES Vital Signs Time BP (mmHg) HR (bpm) O2 Sat. RR (bpm) LOC 133 / 87 97 91 % 17 5 = Fully awake and oriented or at pre-proc level 01:24 PM / % 5 = Fully awake and oriented or at pre-proc level 01:24 PM / % 5 = Fully awake and oriented or at pre-proc level 01:43 PM / % 4 = Oriented but drowsy 01:58 PM / % 4 = Oriented but drowsy 02:13 PM / % 4 = Oriented but drowsy 01:49 PM 125 / 85 123 94 % 18 01:54 PM 127 / 92 108 96 % 20 01:59 PM 126 / 81 117 94 % 18 02:04 PM 114 / 81 101 95 % 14 02:09 PM 124 / 99 112 96 % 19 02:14 PM 114 / 89 112 95 % 18 02:19 PM 125 / 74 113 95 % 26 02:24 PM 113 / 86 110 95 % 15 02:29 PM 113 / 81 136 96 % 18 02:34 PM 128 / 87 106 96 % 20 02:28 PM / % 4 = Oriented but drowsy Procedural Medications Time Medication Dose Units Method Given By 01:51 PM Versed 2 mg Intravenous Julissa Swanson RN 01:51 PM Fentanyl 50 mcg Intravenous Julissa Swanson RN 02:09 PM Lidocaine 2% 19 ml Subcutaneous Huey Shepard MD, FACC 01:50 PM Oxygen 2 L/min nasal cannula Julissa Swanson RN ASA Classification: CLASS II- Mild systemic disease (i.e. well-controlled diabetes, hypertension, asthma, cigarette smoking) Maximino Score Preprocedure Postprocedure Activity 2- Moves 4 extremities sustained head lift Activity 2- Moves 4 extremities sustained head lift Circulation 2- SBP +/= 20 points of pre-anesthetic level Circulation 2- SBP +/= 20 points of pre-anesthetic level Consciousness 2- Awake and alert oriented x 3 Consciousness 2- Awake and alert oriented x 3 O2 Saturation 2- Able to maintain O2 satruation of 92% on room air O2 Saturation 2- Able to maintain O2 satruation of 92% on room air Respiratory 2- Able to deep breathe and cough well Respiratory 2- Able to deep breathe and cough well Total Score 10 Total Score 10 Contrast Agent: Isovue Diagnostic Contrast: 65 ml Total Contrast: 65 ml Fluoro Dose: 338 mGy Procedure Log Time Note Enter By 01:23 PM CathStat 01:24 PM Pt arrived to laboratory chemist 2 at 13:[address] [facility] 01:24 PM Julissa Swanson RN Position: Wallpaper Hanger Time in: 13:[address] [facility] 01:24 PM Joceline Swan RT (R) Position: Scrub Time in: 13:[address] [facility] 01:24 PM Patient charges- Angio tray pack, Navilyst 3mm J, Pulse Oximetry and ACIST tubing and transducer dspell:24 PM IV Supplies used: J loop Angio Cath. dspell:24 PM Time: 13:24 Patient comfortable and pain free: Yes dspell:24 PM Time: 13:24LOC: 5 = Fully awake and oriented or at pre-proc level [email or web address] 01:25 PM Clinical Presentation: Unstable angina dspell:32 PM Physican paged/called 13:32. dspell:43 PM Time: 13:24LOC: 5 = Fully awake and oriented or at pre-proc level dspellman :43 PM Time: 13:24 Patient comfortable and pain free: Yes dspellman :48 PM Physician arrived 13:48 scoates :48 PM ASA Class CLASS II- Mild systemic disease (i.e. well-controlled diabetes, hypertension, asthma, cigarette smoking) scoates :48 PM Meet and greet completed scoates :48 PM Sign in performed according to hospital policy. scoates :48 PM Procedure start 13:48 scoates :49 PM Vitals capture started with the following parameters, Patient=Adult, Interval=5 min, Initial Hfncdpei=229 mmHg, Deflation Rate=5 mmHg, Cuff placed on Left Arm 01:49 PM CS=844 bpm, ZWEB=260/85 mmhg, SpO2=94.0 %, Resp=18 B/min, Comment=afib 01:50 PM Time: 13:50 Oxygen on at 2 L/min per nasal cannula by Julissa Swanson RN scoates 01:51 PM Time: 13:51 Versed 2 mg Intravenous Given by Julissa Swanson RN scoates 01:51 PM Time: 13:51 Fentanyl 50 mcg Intravenous Given by Julissa Swanson RN scoates 01:52 PM Selena Awad RN Position: Monitor Time in: 13:52 scoates 01:52 PM Case Delayed no scoates :52 PM Hair removed from procedure site in procedure lab using clippers. Bilateral groin prepped with Chloraprep by Joceline Swan RT (R) then patient draped. Skin intact. scoates 01:54 PM FQ=364 bpm, SUUC=278/92 mmhg, SpO2=96.0 %, Resp=20 B/min, Comment=afib 01:58 PM Time: 13:43 Patient comfortable and pain free: Yes scoates 01:58 PM Time: 13:43LOC: 4 = Oriented but drowsy scoates 01:59 PM Pressure channel 2 zeroed. 01:59 PM TQ=744 bpm, YWVX=678/81 mmhg, SpO2=94.0 %, Resp=18 B/min, Comment=afib 02:04 PM LW=827 bpm, UPOP=825/81 mmhg, SpO2=95.0 %, Resp=14 B/min, Comment=afib 02:09 PM Time out performed according to hospital policy scoates 02:09 PM Time: 14:09 19 ml Lidocaine 2% to right groin Subcutaneous Given by Huey Shepard MD, [facility] scoates 02:09 PM EC=304 bpm, JJNP=178/99 mmhg, SpO2=96.0 %, Resp=19 B/min, Comment=afib 02:12 PM Access obtained by percutaneous puncture. 5Fr 10cm Terumo [place] sheath placed in right Femoral artery. [id number] scoates 02:13 PM Time: 13:58 Patient comfortable and pain free: Yes scoates 02:13 PM Time: 13:58LOC: 4 = Oriented but drowsy scoates 02:13 PM 5Fr FL 4 catheter inserted over the wire DN scoates 02:14 PM Recorded Pressure: Ao, HR=96, Condition=Condition 1 (Aorta) Ao 109/82/95 02:14 PM AZ=485 bpm, XOBZ=358/89 mmhg, SpO2=95.0 %, Resp=18 B/min, Comment=afib 02:15 PM LCA angiography performed in multiple views. scoates 02:15 PM Catheter removed scoates 02:15 PM 5Fr FR 4 catheter inserted over the wire DN scoates 02:16 PM Lesion found in LMCA. Pre Stenosis: 20 Pre SWATI Flow: scoates 02:16 PM Lesion found in Mid LAD. Pre Stenosis: 50 Pre SWATI Flow: scoates 02:16 PM Lesion found in Mid Circumflex. Pre Stenosis: 30 Pre SWATI Flow: scoates 02:17 PM Recorded Pressure: Ao, EC=504, Condition=Condition 1 (Aorta) Ao 110/87/99 02:18 PM Coronary Dominance: right scoates 02:18 PM RCA angiography performed in multiple views. scoates 02:18 PM Catheter removed scoates 02:18 PM Lesion found in Mid RCA. Pre Stenosis: 100 Pre SWATI Flow: scoates 02:19 PM 5Fr Pigtail catheter inserted over the wire [employer] scoates 02:19 PM LT=458 bpm, SPDL=397/74 mmhg, SpO2=95.0 %, Resp=26 B/min 02:20 PM Recorded Pressure: LV, CZ=826, Condition=Condition 1 (Left Ventricle) LV 127/10/25 02:20 PM Catheter selectively placed in left ventricle scoates 02:21 PM Recorded Pressure: LV, Ao, KB=115, Condition=Condition 1 (Left Ventricle) LV 125/14/28, (Aorta) Ao 107/60/86 02:22 PM Bolus angiogram of left Ventricle complete: 11 ml/sec for a total of 30 mls scoates 02:22 PM Bolus angiogram of right Femoral complete: 4 ml/sec for a total of 7 mls scoates 02:23 PM Procedure completed at 14:23 scoates 02:24 PM Sign out completed: Radiation Dose 338 mGy Fluoro Time: 1.8 Isovue 370 - 200ml contrast 65 ml given by Huey Shepard MD, [facility]. Complications: NoneConfirmed administered medications: Yes scoates 02:24 PM Isovue 370 - 200ml,1 Bottle(s) used. scoates 02:24 PM Arterial sheath pulled using manual compression and V+ Pad for 15 minutes by Joceline Swan RT (R) scoates 02:24 PM VL=851 bpm, YHXP=294/86 mmhg, SpO2=95.0 %, Resp=15 B/min 02:25 PM Helena Maciel RT (R) Position: RT Time in: 14:24 scoates 02:26 PM Post ECG Atrial Fibrillation scoates 02:26 PM Post Blood Pressure 113/86 scoates 02:28 PM Time: 14:13 Patient comfortable and pain free: Yes scoates 02:28 PM Time: 14:13LOC: 4 = Oriented but drowsy scoates 02:28 PM 14:28 Post Pulses Bilateral DP \\T\\ PT 1+ scoates 02:29 PM Information taught Cardiac Cath scoates 02:29 PM ID=382 bpm, TTZP=524/81 mmhg, SpO2=96.0 %, Resp=18 B/min 02:30 PM Education needs Procedure, Plan of Care, and Responsibilities of Patient in Care scoates 02:30 PM Learning barriers :None scoates 02:30 PM Education Methods Verbal scoates 02:31 PM Plavix, Effient or Brilinta given No scoates 02:31 PM Delay to floor No scoates 02:31 PM Family placed in consult room. scoates 02:31 PM Complications: None scoates 02:34 PM PF=802 bpm, BIEJ=546/87 mmhg, SpO2=96.0 %, Resp=20 B/min, Comment=afib 02:39 PM Report given to 3B nurse RN Pt taken to Room #37. 14:39 scoates 02:43 PM Site status No bleeding/hematoma - Rt Groin as reported by Joceline Swan RT (R) at 14:43 scoates 02:43 PM Complications: None scoates 02:43 PM Time: 14:28LOC: 4 = Oriented but drowsy scoates 02:44 PM Patient out of room: 14:44 scoates Equipment Used Size Length Diameter Item Category Angio tray pack Other J-loop Other Terumo [place] sheath Isovue 370- 200ml Contrast Glidewire wire V+Pad Patch Complications Complication None None None Hemodynamics Pressures Site Systolic/A Wave Diastolic/V Wave Mean AO 109 82 95 AO 110 87 99 LV 127 10 25 LV 125 14 28 AO 107 60 86 Post Procedure Information Blood Pressure: 113/86 mmHg Rhythm: Atrial Fibrillation Post procedural instructions were given Closure Device Time Device Success/Fail 11/22/2016 2:38:00 PM Manual Compression Successful Site Checks Time Location Status Staff Sheath In? Note 02:43 PM Rt Groin No bleeding/hematoma Joceline Swan RT (R) Pulses Time Site Pre-Procedure Post-Procedure Note Bilateral DP \\T\\ PT 1+ Bilateral radial 2+ 2:28:00 PM Bilateral DP \\T\\ PT 1+ Updated by Joceline Swan RT (R) on 12/27/2016 10:25:11 AM Joceline Swan RT electronically signed on 12/27/2016 10:27:47 AM with status of Final
== END 2016-11-23 17:17 | disposition home or self-care (01) | DRG 287 ==
LOC: 3BNU 12:14 → EMEROO 12:14 → SUATTDRO 15:34 → 3BNU 16:22
PROVIDERS: ADMIT Internal Medicine; ATTEND Internal Medicine

== ENCOUNTER 2019-09-15 07:33 | Inpatient (IN) ==
[2019-09-15] MEDS ORDERED: CeFAZolin Syr 2,000MG/20 ML 2,000 MG/20 ML SYRINGE IVPB ONE (08:01)
[2019-09-15] MEDS ORDERED: Albuterol 2.5 MG/3 ML NEBULIZER IH PRN ×2 (08:01→12:44)
[2019-09-15] MEDS ORDERED: Ringers Solution, Lactated 1,000 ML IVC SCH ×2 (08:15→12:44)
[2019-09-15] MEDS ORDERED: Ondansetron 4 MG/2 ML VIAL ONE (08:25)
[2019-09-15] MEDS ORDERED: Lidocaine -MPF 4% 5 ML AMPUL ONE (08:25)
[2019-09-15] MEDS ORDERED: Dexamethasone 4 MG/ML VIAL ONE (08:25)
[2019-09-15] MEDS ORDERED: *HR* Propofol 200 MG/20 ML VIAL IVP ONE (08:25)
[2019-09-15] MEDS ORDERED: *HR* Succinylcholine 200 MG/10 ML VIAL IVP ONE (08:25)
[2019-09-15] MEDS ORDERED: Lidocaine -MPF 2% 2 ML VIAL ONE (08:25)
[2019-09-15] MEDS ORDERED: *HR* FentaNYL (PF) 100 MCG/2 ML VIAL ONE (08:25)
[2019-09-15] MEDS ORDERED: *HR* Phenylephrine 10 MG/ML VIAL ONE (08:32)
[2019-09-15] MEDS ORDERED: Ropivacaine/PF 0.5% 30 ML VIAL ONE (08:40)
[2019-09-15] MEDS ORDERED: EPHEDrine 50 MG/ML VIAL ONE (08:48)
[2019-09-15] MEDS ORDERED: Ondansetron 4 MG/2 ML VIAL IVP ONE (08:54)
[2019-09-15] MEDS ORDERED: *HR* OxyCODONE Immed Rel 5 MG TABLET PO PRN (08:54)
[2019-09-15] MEDS ORDERED: *HR* HYDROmorphone (PF) 1 MG/ML SYRINGE IVP PRN (08:54)
[2019-09-15] MEDS ORDERED: Ethanol\\Acetic Acid\\Na Ace\\Ben 1,000 ML IRRIG.SOLN IR ONE (09:34)
[2019-09-15] MEDS ORDERED: *HR* Vasopressin 20 UNIT/ML VIAL ONE (10:01)
[2019-09-15] MEDS ORDERED: ROPIVACAINE/PF/NS 0.25% 1 EACH SYRINGE INTRAART ONE (10:56)
[2019-09-15] MEDS ORDERED: MOM Conc 10 ML UD.LIQ PO PRN (12:44)
[2019-09-15] MEDS ORDERED: Sennosides 8.6 MG TABLET PO PRN (12:44)
[2019-09-15] MEDS ORDERED: Naloxone 0.4 MG/ML INJ IVP PRN (12:44)
[2019-09-15] MEDS ORDERED: traMADol 50 MG TABLET PO PRN (12:44)
[2019-09-15] MEDS ORDERED: Ondansetron 4 MG/2 ML VIAL IVP PRN (12:44)
[2019-09-15] MEDS ORDERED: Temazepam 15 MG CAPSULE PO PRN (12:44)
[2019-09-15] MEDS: *HR* OxyCODONE Immed Rel 5 MG TABLET PO PRN ×2 (13:29→17:55)
[2019-09-15 14:11] LABS: Hematocrit 38.2 % (37.5-50.1); Hemoglobin 12.5 g/dL (12.9-16.9)
[2019-09-15] MEDS ORDERED: D5% in Water 1,000 ML IVC PRN (17:26)
[2019-09-15] MEDS ORDERED: Dextrose Gel 15 GM/37.5 ML TUBE PO PRN ×2 (17:26)
[2019-09-15] MEDS ORDERED: *HR* Dextrose 50 % in Water (Syg) 50 ML SYRINGE IVP PRN (17:26)
[2019-09-15] MEDS: *HR* Metformin 500 MG TABLET PO SCH (17:55)
[2019-09-15] MEDS: Furosemide 40 MG TABLET PO SCH (17:56)
[2019-09-15] MEDS: ceFAZolin sodium 3,000 MG in 0.9 % Sodium Chloride 100 ML IVPB SCH ×2 (17:57→23:43)
[2019-09-15] MEDS ORDERED: Spironolactone 25 MG TABLET PO SCH (18:00)
[2019-09-15] MEDS: Insulin LISPRO 300 UNITS/3 ML VIAL SQ SCH (18:28)
[2019-09-15] MEDS: Budesonide/Formoterol 160/4.5 1 PUFF INH IH SCH (19:53)
[2019-09-15] MEDS: Fluticasone Propionate Nasal 50 MCG/SPRAY BOTTLE NS SCH (20:02)
[2019-09-15] MEDS: *HR* Dabigatran 150 MG CAPSULE PO SCH (20:03)
[2019-09-15] MEDS: Ammonium Lactate 30 APPL/225 GM BOTTLE TP SCH (20:03)
[2019-09-15] MEDS ORDERED: Insulin LISPRO 300 UNITS/3 ML VIAL SQ SCH (21:00)
[2019-09-15] MEDS: *HR* OxyCODONE/APAP 5/325 TABLET PO PRN (23:50)
[2019-09-16 03:02] VITALS: BP 151/95
[2019-09-16 05:00] LABS: Hematocrit 36.5 % (37.5-50.1); Hemoglobin 11.3 g/dL (12.9-16.9)
[2019-09-16 05:17] LABS: BUN/Creatinine Ratio 14 (6-26); Blood Urea Nitrogen 12 mg/dL (8-23); Calcium 8.5 mg/dL (8.6-10.3); Carbon Dioxide 24 mEq/L (23-29); Chloride 101 mEq/L (98-107); Glucose 155 mg/dL (70-105); Osmolality,Calculated 277 (280-300); Potassium 3.9 mEq/L (3.5-5.1); Sodium 132 mEq/L (136-145); eGFR For African Americans > 60 (> 60); eGFR For Non-African Americans > 60 (> 60)
[2019-09-16] MEDS: Insulin LISPRO 300 UNITS/3 ML VIAL SQ SCH (07:20)
[2019-09-16] MEDS: Budesonide/Formoterol 160/4.5 1 PUFF INH IH SCH (07:21)
[2019-09-16] MEDS: *HR* Dabigatran 150 MG CAPSULE PO SCH (07:21)
[2019-09-16] MEDS: *HR* Metformin 500 MG TABLET PO SCH (07:22)
[2019-09-16] MEDS: *HR* OxyCODONE/APAP 5/325 TABLET PO PRN (07:22)
[2019-09-16] MEDS: Furosemide 40 MG TABLET PO SCH ×3 (07:22→13:05)
[2019-09-16] MEDS: Fluticasone Propionate Nasal 50 MCG/SPRAY BOTTLE NS SCH (07:23)
[2019-09-16] MEDS: Ammonium Lactate 30 APPL/225 GM BOTTLE TP SCH (07:24)
[2019-09-16] MEDS ORDERED: Famotidine 20 MG TABLET PO SCH (07:30)
[2019-09-16] MEDS ORDERED: (Linaclotide [Linzess] 145 MCG) PO SCH (09:00)
[2019-09-16] MEDS ORDERED: Aspirin Enteric Coated 81 MG Tablet PO SCH (09:00)
[2019-09-16] MEDS ORDERED: Magnesium Oxide 400 MG TABLET PO SCH (09:00)
[2019-09-16] MEDS ORDERED: Isosorbide MONOnitrate (24 HR) 60 MG TAB.ER.24H PO SCH (09:00)
[2019-09-16] MEDS ORDERED: Metoprolol XL (24 HR) Succ 50 MG TAB.ER.24H PO SCH (09:00)
[2019-09-16] MEDS ORDERED: Loratadine 10 MG TABLET PO SCH (09:00)
[2019-09-16] MEDS ORDERED: Tiotropium 18 MCG inhalation IH SCH (10:00)
[2019-09-16] MEDS: *HR* OxyCODONE Immed Rel 5 MG TABLET PO PRN (14:02)
== END 2019-09-16 14:20 | disposition home health service (06) | DRG 483 ==
LOC: SAMDAY 07:33 → 3NENU 12:19
PROVIDERS: ADMIT Orthopaedic Surgery; ATTEND Orthopaedic Surgery

== ENCOUNTER 2020-07-28 13:26 | Inpatient (IN) ==
[2020-07-28 14:25] LABS: Basophils % 0.2 %; Eosinophils # 0.1 K/mcL (0.0-0.6); Eosinophils % 1.2 %; Hematocrit 38.2 % (37.5-50.1); Immature Granulocytes % 0.7 % (0-4); Lymphocytes # 1.5 K/mcL (0.6-4.6); Lymphocytes % 16.8 %; Mean Corpuscular HGB Conc 31.4 g/dL (31.6-35.5); Mean Corpuscular Hemoglobin 29.3 pg (28.0-33.3); Mean Corpuscular Volume 93.4 fL (83.0-100.0); Mean Platelet Volume 9.8 fL (9.4-12.4); Monocytes # 1.1 K/mcL (0.0-1.3); Monocytes % 12.3 %; Platelet Count 241 K/mcL (140-400); Red Blood Count 4.09 M/mcL (4.19-5.50); Red Cell Distribution Width 14.7 % (11.5-14.5); Segmented Neutrophils % 68.8 %; White Blood Count 8.7 K/mcL (4.3-11.1)
[2020-07-28 14:50] LABS: BUN/Creatinine Ratio 22 (6-26); Blood Urea Nitrogen 18 mg/dL (8-23); Calcium 9.4 mg/dL (8.6-10.3); Carbon Dioxide 26 mEq/L (23-29); Chloride 101 mEq/L (98-107); Glucose 233 mg/dL (70-105); Osmolality,Calculated 291 (280-300); Potassium 3.7 mEq/L (3.5-5.1); Sodium 136 mEq/L (136-145); Troponin I < 0.03 ng/mL (< 0.04); eGFR For African Americans > 60 (> 60); eGFR For Non-African Americans > 60 (> 60)
[2020-07-28] MEDS ORDERED: Isovue-370 500 ML BOTTLE IVP ONE (15:15)
[2020-07-28 16:04] LABS: Bilirubin,Urine Negative (Negative); Blood,Urine Negative (Negative); Clarity,Urine Clear (Clear); Color,Urine Colorless (Yellow); Glucose,Urine (UA) Normal (Normal); Ketones,Urine Negative (Negative); Leukocyte Esterase,Urine Negative (Negative); Nitrite,Urine Negative (Negative); Protein,Urine Negative (Neg-Trace); Specific Gravity,Urine 1.013 (1.010-1.025); Urobilinogen,Urine Normal (Normal)
[2020-07-28] MEDS ORDERED: Furosemide 40 MG/4 ML VIAL IVP ONE (16:05)
[2020-07-28] MEDS ORDERED: Acetaminophen 325 MG TABLET PO PRN (18:05)
[2020-07-28] MEDS ORDERED: Naloxone 0.4 MG/ML INJ IVP PRN (18:05)
[2020-07-28] MEDS ORDERED: Albuterol 2.5 MG/3 ML NEBULIZER IH PRN (18:21)
[2020-07-28] MEDS ORDERED: Perflutren Lipid Microsphere 1.3 ML in 0.9 % Sodium Chloride 8.7 ML IVP PRN (18:31)
[2020-07-28] MEDS ORDERED: *HR* Dextrose 50 % in Water (Vial) 50 ML VIAL IVP PRN (19:44)
[2020-07-28] MEDS ORDERED: Dextrose Gel 15 GM/37.5 ML TUBE PO PRN ×2 (19:44)
[2020-07-28] MEDS ORDERED: D5% in Water 1,000 ML IVC PRN (19:44)
[2020-07-28 20:03] LABS: Potassium 3.7 mEq/L (3.5-5.1); Troponin I < 0.03 ng/mL (< 0.04)
[2020-07-28] MEDS: *HR* Dabigatran 150 MG CAPSULE PO SCH (20:15)
[2020-07-28] MEDS: Furosemide 80 MG in 0.9 % Sodium Chloride 50 ML IV SCH (20:16)
[2020-07-28] MEDS: Insulin LISPRO 300 UNITS/3 ML VIAL SQ SCH (20:56)
[2020-07-28] MEDS ORDERED: Insulin LISPRO 300 UNITS/3 ML VIAL SQ SCH (21:00)
[2020-07-28] MEDS: Fluticasone Propionate Nasal 50 MCG/SPRAY BOTTLE NS SCH (21:20)
[2020-07-28] MEDS: predniSONE 20 MG TABLET PO SCH (21:20)
[2020-07-28] MEDS: Insulin DETEMIR 100 UNIT/ML X5UNITS SQ SCH (21:20)
[2020-07-28] MEDS: Ipratropium/Albuterol Neb 3 ML IH SCH (21:27)
[2020-07-28] MEDS: Budesonide/Formoterol 160/4.5 1 PUFF INH IH SCH (21:27)
[2020-07-29] MEDS: Ipratropium/Albuterol Neb 3 ML IH SCH ×4 (03:40→21:13)
[2020-07-29 06:23] LABS: Basophils % 0.1 %; Eosinophils % 0.1 %; Hematocrit 40.9 % (37.5-50.1); Hemoglobin 12.9 g/dL (12.9-16.9); Immature Granulocytes % 0.5 % (0-4); Lymphocytes % 10.5 %; Mean Corpuscular HGB Conc 31.5 g/dL (31.6-35.5); Mean Corpuscular Hemoglobin 29.1 pg (28.0-33.3); Mean Corpuscular Volume 92.3 fL (83.0-100.0); Mean Platelet Volume 9.7 fL (9.4-12.4); Monocytes # 0.3 K/mcL (0.0-1.3); Monocytes % 3.4 %; Platelet Count 257 K/mcL (140-400); Red Blood Count 4.43 M/mcL (4.19-5.50); Red Cell Distribution Width 14.8 % (11.5-14.5); Segmented Neutrophils % 85.4 %; White Blood Count 9.3 K/mcL (4.3-11.1)
[2020-07-29 06:42] LABS: BUN/Creatinine Ratio 23 (6-26); Blood Urea Nitrogen 19 mg/dL (8-23); Calcium 9.3 mg/dL (8.6-10.3); Carbon Dioxide 28 mEq/L (23-29); Chloride 99 mEq/L (98-107); Glucose 234 mg/dL (70-105); Osmolality,Calculated 292 (280-300); Potassium 3.9 mEq/L (3.5-5.1); Sodium 136 mEq/L (136-145); eGFR For African Americans > 60 (> 60); eGFR For Non-African Americans > 60 (> 60)
[2020-07-29] MEDS: Magnesium Oxide 400 MG TABLET PO SCH (08:08)
[2020-07-29] MEDS: Loratadine 10 MG TABLET PO SCH (08:08)
[2020-07-29] MEDS: Aspirin Enteric Coated 81 MG Tablet PO SCH (08:08)
[2020-07-29] MEDS: Isosorbide MONOnitrate (24 HR) 60 MG TAB.ER.24H PO SCH (08:08)
[2020-07-29] MEDS: *HR* Dabigatran 150 MG CAPSULE PO SCH ×2 (08:09→22:21)
[2020-07-29] MEDS: Famotidine 20 MG TABLET PO SCH (08:09)
[2020-07-29] MEDS: Metoprolol XL (24 HR) Succ 50 MG TAB.ER.24H PO SCH (08:09)
[2020-07-29] MEDS: (Linaclotide [Linzess] 145 MCG) PO SCH (08:09)
[2020-07-29] MEDS: Insulin LISPRO 300 UNITS/3 ML VIAL SQ SCH ×7 (08:10→22:23)
[2020-07-29] MEDS: Fluticasone Propionate Nasal 50 MCG/SPRAY BOTTLE NS SCH ×2 (08:10→22:24)
[2020-07-29] MEDS: Furosemide 80 MG in 0.9 % Sodium Chloride 50 ML IV SCH ×2 (08:11→22:24)
[2020-07-29] MEDS: Budesonide/Formoterol 160/4.5 1 PUFF INH IH SCH ×2 (10:50→21:10)
[2020-07-29] MEDS: Tiotropium 18 MCG inhalation IH SCH (10:54)
[2020-07-29] MEDS ORDERED: Isovue-370 500 ML BOTTLE IVP ONE (13:38)
[2020-07-29] MEDS: Spironolactone 25 MG TABLET PO SCH (17:00)
[2020-07-29] MEDS: predniSONE 20 MG TABLET PO SCH (17:00)
[2020-07-29] MEDS: Insulin DETEMIR 100 UNIT/ML X5UNITS SQ SCH (22:22)
[2020-07-30] MEDS: Ipratropium/Albuterol Neb 3 ML IH SCH ×4 (03:53→22:09)
[2020-07-30] MEDS: Aspirin Enteric Coated 81 MG Tablet PO SCH (08:48)
[2020-07-30] MEDS: Metoprolol XL (24 HR) Succ 50 MG TAB.ER.24H PO SCH (08:49)
[2020-07-30] MEDS: Isosorbide MONOnitrate (24 HR) 60 MG TAB.ER.24H PO SCH (08:49)
[2020-07-30] MEDS: *HR* Dabigatran 150 MG CAPSULE PO SCH ×2 (08:50→21:22)
[2020-07-30] MEDS: Magnesium Oxide 400 MG TABLET PO SCH (08:50)
[2020-07-30] MEDS: Famotidine 20 MG TABLET PO SCH (08:50)
[2020-07-30] MEDS: Loratadine 10 MG TABLET PO SCH (08:51)
[2020-07-30] MEDS: Insulin LISPRO 300 UNITS/3 ML VIAL SQ SCH ×8 (08:54→21:23)
[2020-07-30] MEDS ORDERED: NON-FORMULARY MEDICATION 1 EACH EACH (Losartan Potassium [Cozaar] 100 MG) PO SCH (09:00)
[2020-07-30] MEDS: Fluticasone Propionate Nasal 50 MCG/SPRAY BOTTLE NS SCH ×2 (09:04→21:24)
[2020-07-30] MEDS: (Linaclotide [Linzess] 145 MCG) PO SCH (09:05)
[2020-07-30] MEDS: Furosemide 80 MG in 0.9 % Sodium Chloride 50 ML IV SCH (09:08)
[2020-07-30] MEDS: Tiotropium 18 MCG inhalation IH SCH (10:34)
[2020-07-30] MEDS: Budesonide/Formoterol 160/4.5 1 PUFF INH IH SCH ×2 (10:36→22:09)
[2020-07-30] MEDS ORDERED: Insulin DETEMIR 100 UNIT/ML X5UNITS SQ ONE (12:15)
[2020-07-30] MEDS: Furosemide 40 MG TABLET PO SCH (16:34)
[2020-07-30] MEDS: Spironolactone 25 MG TABLET PO SCH (16:34)
[2020-07-30] MEDS: predniSONE 20 MG TABLET PO SCH (16:35)
[2020-07-30] MEDS: Insulin DETEMIR 100 UNIT/ML X5UNITS SQ SCH (21:23)
[2020-07-31] MEDS: Ipratropium/Albuterol Neb 3 ML IH SCH ×2 (03:56→10:57)
[2020-07-31 08:05] VITALS: BP 167/85
[2020-07-31] MEDS: Insulin LISPRO 300 UNITS/3 ML VIAL SQ SCH ×2 (10:31)
[2020-07-31] MEDS: Metoprolol XL (24 HR) Succ 50 MG TAB.ER.24H PO SCH (10:32)
[2020-07-31] MEDS: Aspirin Enteric Coated 81 MG Tablet PO SCH (10:32)
[2020-07-31] MEDS: Furosemide 40 MG TABLET PO SCH (10:32)
[2020-07-31] MEDS: Magnesium Oxide 400 MG TABLET PO SCH (10:32)
[2020-07-31] MEDS: Famotidine 20 MG TABLET PO SCH (10:32)
[2020-07-31] MEDS: Isosorbide MONOnitrate (24 HR) 60 MG TAB.ER.24H PO SCH (10:32)
[2020-07-31] MEDS: *HR* Dabigatran 150 MG CAPSULE PO SCH (10:33)
[2020-07-31] MEDS: Loratadine 10 MG TABLET PO SCH (10:33)
[2020-07-31] MEDS: (Linaclotide [Linzess] 145 MCG) PO SCH (10:33)
[2020-07-31] MEDS: Fluticasone Propionate Nasal 50 MCG/SPRAY BOTTLE NS SCH (10:34)
[2020-07-31] MEDS: Tiotropium 18 MCG inhalation IH SCH (10:57)
[2020-07-31] MEDS: Budesonide/Formoterol 160/4.5 1 PUFF INH IH SCH (10:57)
== END 2020-07-31 11:33 | disposition home or self-care (01) | DRG 291 ==
LOC: EMEROOARM 13:26 → 2ANU 13:26 → SUATTDRO 18:13 → 2ANU 18:43
PROVIDERS: ADMIT Internal Medicine; ATTEND Internal Medicine

== ENCOUNTER 2021-02-21 17:09 | Inpatient (IN) ==
[2021-02-21 17:53] LABS: Basophils % 0.2 %; Eosinophils # 0.1 K/mcL (0.0-0.6); Eosinophils % 0.8 %; Hematocrit 31.9 % (37.5-50.1); Hemoglobin 9.9 g/dL (12.9-16.9); Immature Granulocytes % 0.4 % (0-4); Lymphocytes # 1.8 K/mcL (0.6-4.6); Mean Corpuscular Hemoglobin 29.6 pg (28.0-33.3); Mean Corpuscular Volume 95.2 fL (83.0-100.0); Mean Platelet Volume 9.8 fL (9.4-12.4); Monocytes # 1.2 K/mcL (0.0-1.3); Neutrophils # 6.9 K/mcL (1.6-8.9); Platelet Count 253 K/mcL (140-400); Red Blood Count 3.35 M/mcL (4.19-5.50); Red Cell Distribution Width 14.4 % (11.5-14.5); Segmented Neutrophils % 68.6 %; White Blood Count 10.1 K/mcL (4.3-11.1)
[2021-02-21 18:09] LABS: BUN/Creatinine Ratio 23 (6-26); Blood Urea Nitrogen 29 mg/dL (8-23); Calcium 9.2 mg/dL (8.6-10.3); Carbon Dioxide 29 mEq/L (23-29); Chloride 99 mEq/L (98-107); Glucose 123 mg/dL (70-105); Osmolality,Calculated 291 (280-300); Potassium 3.7 mEq/L (3.5-5.1); Sodium 137 mEq/L (136-145); Troponin I < 0.03 ng/mL (< 0.04); eGFR For African Americans > 60 (> 60); eGFR For Non-African Americans 55 (> 60)
[2021-02-21] MEDS ORDERED: Acetaminophen 325 MG TABLET PO PRN (20:21)
[2021-02-21] MEDS ORDERED: Ondansetron 4 MG/2 ML VIAL IVP PRN (20:21)
[2021-02-21] MEDS ORDERED: Naloxone 0.4 MG/ML INJ IVP PRN (20:21)
[2021-02-21] MEDS ORDERED: Dextrose Gel 15 GM/37.5 ML TUBE PO PRN ×2 (20:25)
[2021-02-21] MEDS ORDERED: D5% in Water 1,000 ML IVC PRN (20:25)
[2021-02-21] MEDS ORDERED: *HR* Dextrose 50 % in Water (Vial) 50 ML VIAL IVP PRN (20:25)
[2021-02-21] MEDS: Insulin DETEMIR 100 UNIT/ML X5UNITS SUBQ SCH (23:28)
[2021-02-21] MEDS: Insulin LISPRO 300 UNITS/3 ML VIAL SUBQ SCH (23:29)
[2021-02-21] MEDS: *HR* Dabigatran 150 MG CAPSULE PO SCH (23:29)
[2021-02-22 01:58] LABS: Basophils % 0.2 %; Eosinophils # 0.1 K/mcL (0.0-0.6); Eosinophils % 0.9 %; Hematocrit 32.6 % (37.5-50.1); Immature Granulocytes % 0.6 % (0-4); Lymphocytes # 1.7 K/mcL (0.6-4.6); Lymphocytes % 19.2 %; Mean Corpuscular HGB Conc 30.7 g/dL (31.6-35.5); Mean Corpuscular Hemoglobin 29.7 pg (28.0-33.3); Mean Corpuscular Volume 96.7 fL (83.0-100.0); Mean Platelet Volume 10.2 fL (9.4-12.4); Monocytes # 1.1 K/mcL (0.0-1.3); Monocytes % 12.6 %; Neutrophils # 5.8 K/mcL (1.6-8.9); Platelet Count 258 K/mcL (140-400); Red Blood Count 3.37 M/mcL (4.19-5.50); Red Cell Distribution Width 14.4 % (11.5-14.5); Segmented Neutrophils % 66.5 %; White Blood Count 8.7 K/mcL (4.3-11.1)
[2021-02-22 02:05] LABS: INR 1.4
[2021-02-22 02:15] LABS: Alanine Aminotransferase 22 Units/L (7-52); Albumin/Globulin Ratio 1.7 (1.1-2.2); Alkaline Phosphatase 86 Units/L (34-104); Aspartate Amino Transferase 17 Units/L (13-39); BUN/Creatinine Ratio 28 (6-26); Bilirubin,Total 0.3 mg/dL (0.3-1.0); Blood Urea Nitrogen 35 mg/dL (8-23); Calcium 9.1 mg/dL (8.6-10.3); Carbon Dioxide 29 mEq/L (23-29); Chloride 98 mEq/L (98-107); Globulin 2.3 g/dL (2.4-3.5); Glucose 153 mg/dL (70-105); Osmolality,Calculated 293 (280-300); Potassium 3.5 mEq/L (3.5-5.1); Sodium 136 mEq/L (136-145); Total Protein 6.3 g/dL (6.4-8.9); eGFR For African Americans > 60 (> 60); eGFR For Non-African Americans 54 (> 60)
[2021-02-22] MEDS ORDERED: Furosemide 40 MG/4 ML VIAL IVP ONE (04:08)
[2021-02-22] MEDS: Ipratropium/Albuterol Neb 3 ML IH PRN ×2 (04:28→08:52)
[2021-02-22] MEDS: Insulin LISPRO 300 UNITS/3 ML VIAL SUBQ SCH ×4 (05:56→21:40)
[2021-02-22] MEDS ORDERED: Potassium Chloride 20 MEQ, Lidocaine 1% 2 ML in 0.9 % Sodium Chloride 250 ML IVPB ONE (06:37)
[2021-02-22] MEDS: Aspirin Enteric Coated 81 MG Tablet PO SCH (09:15)
[2021-02-22] MEDS ORDERED: Perflutren Lipid Microsphere 1.3 ML in 0.9 % Sodium Chloride 8.7 ML IVP PRN (10:29)
[2021-02-22] MEDS: *HR* Dabigatran 150 MG CAPSULE PO SCH ×2 (10:38→21:40)
[2021-02-22] MEDS: Spironolactone 25 MG TABLET PO SCH (13:38)
[2021-02-22] MEDS: Furosemide 40 MG/4 ML VIAL IVP SCH (21:40)
[2021-02-22] MEDS: Insulin DETEMIR 100 UNIT/ML X5UNITS SUBQ SCH (21:40)
[2021-02-22] MEDS: Budesonide/Formoterol 160/4.5 1 PUFF INH IH SCH (21:43)
[2021-02-23 03:41] LABS: Hematocrit 34.1 % (37.5-50.1); Hemoglobin 10.8 g/dL (12.9-16.9); Mean Corpuscular HGB Conc 31.7 g/dL (31.6-35.5); Mean Corpuscular Hemoglobin 29.8 pg (28.0-33.3); Mean Corpuscular Volume 94.2 fL (83.0-100.0); Mean Platelet Volume 10.2 fL (9.4-12.4); Platelet Count 256 K/mcL (140-400); Red Blood Count 3.62 M/mcL (4.19-5.50); Red Cell Distribution Width 14.5 % (11.5-14.5); White Blood Count 10.5 K/mcL (4.3-11.1)
[2021-02-23 03:58] LABS: BUN/Creatinine Ratio 29 (6-26); Blood Urea Nitrogen 31 mg/dL (8-23); Calcium 9.4 mg/dL (8.6-10.3); Carbon Dioxide 30 mEq/L (23-29); Chloride 99 mEq/L (98-107); Glucose 111 mg/dL (70-105); Osmolality,Calculated 293 (280-300); Potassium 3.8 mEq/L (3.5-5.1); Sodium 138 mEq/L (136-145); eGFR For African Americans > 60 (> 60); eGFR For Non-African Americans > 60 (> 60)
[2021-02-23 04:01] LABS: Magnesium 2.2 mg/dL (1.6-2.6); Phosphorous 3.6 mg/dL (2.7-4.5)
[2021-02-23 04:14] LABS: Thyroid Stimulating Hormone 1.961 mcIU/mL (0.340-5.600)
[2021-02-23 04:25] LABS: Folate 14.1 ng/mL (3.0-16.0)
[2021-02-23] MEDS: Insulin LISPRO 300 UNITS/3 ML VIAL SUBQ SCH ×4 (08:24→21:18)
[2021-02-23] MEDS: Isosorbide MONOnitrate (24 HR) 60 MG TAB.ER.24H PO SCH (09:59)
[2021-02-23] MEDS: Magnesium Oxide 400 MG TABLET PO SCH (09:59)
[2021-02-23] MEDS: Spironolactone 25 MG TABLET PO SCH (09:59)
[2021-02-23] MEDS: Loratadine 10 MG TABLET PO SCH (09:59)
[2021-02-23] MEDS: Aspirin Enteric Coated 81 MG Tablet PO SCH (09:59)
[2021-02-23] MEDS: Tolterodine LA (24 HR) 4 MG CAP.ER.24H PO SCH (09:59)
[2021-02-23] MEDS: Furosemide 40 MG/4 ML VIAL IVP SCH ×2 (10:00→21:26)
[2021-02-23] MEDS: *HR* Dabigatran 150 MG CAPSULE PO SCH ×2 (10:00→21:25)
[2021-02-23] MEDS: Budesonide/Formoterol 160/4.5 1 PUFF INH IH SCH ×2 (11:09→20:04)
[2021-02-23] MEDS: Ipratropium/Albuterol Neb 3 ML IH PRN (11:10)
[2021-02-23] MEDS: Tiotropium 10 INH DOSE IH SCH (11:11)
[2021-02-23] MEDS: Melatonin 3 MG TABLET PO PRN (21:25)
[2021-02-23] MEDS: Insulin DETEMIR 100 UNIT/ML X5UNITS SUBQ SCH (21:26)
[2021-02-24 03:36] LABS: Basophils % 0.2 %; Eosinophils # 0.1 K/mcL (0.0-0.6); Eosinophils % 1.2 %; Hematocrit 31.1 % (37.5-50.1); Hemoglobin 9.6 g/dL (12.9-16.9); Immature Granulocytes % 0.7 % (0-4); Lymphocytes # 1.4 K/mcL (0.6-4.6); Lymphocytes % 15.3 %; Mean Corpuscular HGB Conc 30.9 g/dL (31.6-35.5); Mean Corpuscular Hemoglobin 29.7 pg (28.0-33.3); Mean Corpuscular Volume 96.3 fL (83.0-100.0); Mean Platelet Volume 10.4 fL (9.4-12.4); Monocytes # 1.2 K/mcL (0.0-1.3); Monocytes % 12.8 %; Neutrophils # 6.4 K/mcL (1.6-8.9); Nucleated Red Blood Cells 0.2 /100 WBC (0); Platelet Count 238 K/mcL (140-400); Red Blood Count 3.23 M/mcL (4.19-5.50); Red Cell Distribution Width 14.6 % (11.5-14.5); Segmented Neutrophils % 69.8 %; White Blood Count 9.1 K/mcL (4.3-11.1)
[2021-02-24 03:54] LABS: BUN/Creatinine Ratio 33 (6-26); Blood Urea Nitrogen 36 mg/dL (8-23); Calcium 9.1 mg/dL (8.6-10.3); Carbon Dioxide 28 mEq/L (23-29); Chloride 102 mEq/L (98-107); Glucose 152 mg/dL (70-105); Magnesium 2.3 mg/dL (1.6-2.6); Osmolality,Calculated 299 (280-300); Phosphorous 4.1 mg/dL (2.7-4.5); Potassium 3.7 mEq/L (3.5-5.1); Sodium 139 mEq/L (136-145); eGFR For African Americans > 60 (> 60); eGFR For Non-African Americans > 60 (> 60)
[2021-02-24 04:29] LABS: Estimated Average Glucose 186 mg/dl; Hemoglobin A1C 8.1 %
[2021-02-24] MEDS: Tiotropium 10 INH DOSE IH SCH (07:47)
[2021-02-24] MEDS: Budesonide/Formoterol 160/4.5 1 PUFF INH IH SCH ×2 (07:47→19:29)
[2021-02-24] MEDS: Insulin LISPRO 300 UNITS/3 ML VIAL SUBQ SCH ×3 (08:10→17:01)
[2021-02-24] MEDS: Aspirin Enteric Coated 81 MG Tablet PO SCH (08:12)
[2021-02-24] MEDS: Furosemide 40 MG/4 ML VIAL IVP SCH (08:12)
[2021-02-24] MEDS: *HR* Dabigatran 150 MG CAPSULE PO SCH ×2 (08:12→21:01)
[2021-02-24] MEDS: Spironolactone 25 MG TABLET PO SCH (08:12)
[2021-02-24] MEDS: Isosorbide MONOnitrate (24 HR) 60 MG TAB.ER.24H PO SCH (08:12)
[2021-02-24] MEDS: Magnesium Oxide 400 MG TABLET PO SCH (08:12)
[2021-02-24] MEDS: Loratadine 10 MG TABLET PO SCH (08:12)
[2021-02-24] MEDS: Tolterodine LA (24 HR) 4 MG CAP.ER.24H PO SCH (08:12)
[2021-02-24] MEDS: Sennosides/Docusate Sodium TABLET PO SCH ×2 (11:49→21:01)
[2021-02-24] MEDS: polyethylene glycoL 3350 17 GM POWD.PACK PO SCH (11:49)
[2021-02-24] MEDS: Melatonin 3 MG TABLET PO PRN (21:01)
[2021-02-24] MEDS: Insulin DETEMIR 100 UNIT/ML X5UNITS SUBQ SCH (21:08)
[2021-02-25 07:34] LABS: Basophils % 0.4 %; Eosinophils # 0.1 K/mcL (0.0-0.6); Eosinophils % 1.6 %; Hematocrit 30.6 % (37.5-50.1); Hemoglobin 9.4 g/dL (12.9-16.9); Immature Granulocytes % 0.5 % (0-4); Lymphocytes # 1.4 K/mcL (0.6-4.6); Lymphocytes % 17.7 %; Mean Corpuscular HGB Conc 30.7 g/dL (31.6-35.5); Mean Corpuscular Hemoglobin 29.5 pg (28.0-33.3); Mean Corpuscular Volume 95.9 fL (83.0-100.0); Mean Platelet Volume 10.2 fL (9.4-12.4); Monocytes % 12.6 %; Neutrophils # 5.4 K/mcL (1.6-8.9); Platelet Count 212 K/mcL (140-400); Red Blood Count 3.19 M/mcL (4.19-5.50); Red Cell Distribution Width 14.7 % (11.5-14.5); Segmented Neutrophils % 67.2 %; White Blood Count 8.1 K/mcL (4.3-11.1)
[2021-02-25 08:12] LABS: BUN/Creatinine Ratio 37 (6-26); Blood Urea Nitrogen 38 mg/dL (8-23); Calcium 9.3 mg/dL (8.6-10.3); Carbon Dioxide 28 mEq/L (23-29); Chloride 103 mEq/L (98-107); Glucose 143 mg/dL (70-105); Magnesium 2.4 mg/dL (1.6-2.6); Osmolality,Calculated 302 (280-300); Potassium 3.7 mEq/L (3.5-5.1); Sodium 140 mEq/L (136-145); eGFR For African Americans > 60 (> 60); eGFR For Non-African Americans > 60 (> 60)
[2021-02-25] MEDS: Insulin LISPRO 300 UNITS/3 ML VIAL SUBQ SCH ×3 (08:45→16:29)
[2021-02-25] MEDS: Tolterodine LA (24 HR) 4 MG CAP.ER.24H PO SCH (08:46)
[2021-02-25] MEDS: Loratadine 10 MG TABLET PO SCH (08:46)
[2021-02-25] MEDS: Sennosides/Docusate Sodium TABLET PO SCH ×2 (08:46→20:35)
[2021-02-25] MEDS: Magnesium Oxide 400 MG TABLET PO SCH (08:46)
[2021-02-25] MEDS: Isosorbide MONOnitrate (24 HR) 60 MG TAB.ER.24H PO SCH (08:46)
[2021-02-25] MEDS: polyethylene glycoL 3350 17 GM POWD.PACK PO SCH (08:46)
[2021-02-25] MEDS: Aspirin Enteric Coated 81 MG Tablet PO SCH (08:46)
[2021-02-25] MEDS: Spironolactone 25 MG TABLET PO SCH (08:47)
[2021-02-25] MEDS: *HR* Dabigatran 150 MG CAPSULE PO SCH ×2 (08:47→20:35)
[2021-02-25] MEDS: Furosemide 40 MG TABLET PO SCH (08:47)
[2021-02-25] MEDS: Budesonide/Formoterol 160/4.5 1 PUFF INH IH SCH ×2 (10:09→22:02)
[2021-02-25] MEDS: Tiotropium 10 INH DOSE IH SCH (10:09)
[2021-02-25] MEDS: Insulin DETEMIR 100 UNIT/ML X5UNITS SUBQ SCH (20:36)
[2021-02-25] MEDS: hydrALAZINE 10 MG TABLET PO SCH (20:36)
[2021-02-25] MEDS: Melatonin 3 MG TABLET PO PRN (20:38)
[2021-02-26 04:39] LABS: Basophils % 0.3 %; Eosinophils # 0.2 K/mcL (0.0-0.6); Eosinophils % 1.9 %; Hematocrit 31.1 % (37.5-50.1); Hemoglobin 9.5 g/dL (12.9-16.9); Immature Granulocytes % 0.6 % (0-4); Lymphocytes # 1.5 K/mcL (0.6-4.6); Lymphocytes % 19.6 %; Mean Corpuscular HGB Conc 30.5 g/dL (31.6-35.5); Mean Corpuscular Volume 98.1 fL (83.0-100.0); Mean Platelet Volume 10.3 fL (9.4-12.4); Monocytes # 1.1 K/mcL (0.0-1.3); Monocytes % 14.3 %; Neutrophils # 4.9 K/mcL (1.6-8.9); Nucleated Red Blood Cells 0.3 /100 WBC (0); Platelet Count 212 K/mcL (140-400); Red Blood Count 3.17 M/mcL (4.19-5.50); Red Cell Distribution Width 14.9 % (11.5-14.5); Segmented Neutrophils % 63.3 %; White Blood Count 7.8 K/mcL (4.3-11.1)
[2021-02-26 04:59] LABS: BUN/Creatinine Ratio 29 (6-26); Blood Urea Nitrogen 33 mg/dL (8-23); Carbon Dioxide 29 mEq/L (23-29); Chloride 105 mEq/L (98-107); Glucose 146 mg/dL (70-105); Magnesium 2.4 mg/dL (1.6-2.6); Osmolality,Calculated 300 (280-300); Potassium 3.8 mEq/L (3.5-5.1); Sodium 140 mEq/L (136-145); eGFR For African Americans > 60 (> 60); eGFR For Non-African Americans > 60 (> 60)
[2021-02-26] MEDS: Tiotropium 10 INH DOSE IH SCH (07:36)
[2021-02-26] MEDS: Budesonide/Formoterol 160/4.5 1 PUFF INH IH SCH ×2 (07:37→19:52)
[2021-02-26] MEDS: Furosemide 40 MG TABLET PO SCH (07:52)
[2021-02-26] MEDS: hydrALAZINE 10 MG TABLET PO SCH ×3 (07:52→20:39)
[2021-02-26] MEDS: polyethylene glycoL 3350 17 GM POWD.PACK PO SCH (07:52)
[2021-02-26] MEDS: Isosorbide MONOnitrate (24 HR) 60 MG TAB.ER.24H PO SCH (07:52)
[2021-02-26] MEDS: Sennosides/Docusate Sodium TABLET PO SCH (07:52)
[2021-02-26] MEDS: Tolterodine LA (24 HR) 4 MG CAP.ER.24H PO SCH (07:52)
[2021-02-26] MEDS: Aspirin Enteric Coated 81 MG Tablet PO SCH (07:52)
[2021-02-26] MEDS: Loratadine 10 MG TABLET PO SCH (07:52)
[2021-02-26] MEDS: Magnesium Oxide 400 MG TABLET PO SCH (07:52)
[2021-02-26] MEDS: Spironolactone 25 MG TABLET PO SCH (07:52)
[2021-02-26] MEDS: *HR* Dabigatran 150 MG CAPSULE PO SCH ×2 (07:52→20:40)
[2021-02-26] MEDS: Insulin LISPRO 300 UNITS/3 ML VIAL SUBQ SCH ×3 (07:53→16:30)
[2021-02-26] MEDS: Insulin DETEMIR 100 UNIT/ML X5UNITS SUBQ SCH (20:39)
[2021-02-27 06:34] LABS: Basophils % 0.2 %; Eosinophils # 0.1 K/mcL (0.0-0.6); Eosinophils % 1.3 %; Hematocrit 31.2 % (37.5-50.1); Hemoglobin 9.9 g/dL (12.9-16.9); Immature Granulocytes % 0.5 % (0-4); Lymphocytes # 1.4 K/mcL (0.6-4.6); Lymphocytes % 16.5 %; Mean Corpuscular HGB Conc 31.7 g/dL (31.6-35.5); Mean Corpuscular Volume 94.5 fL (83.0-100.0); Mean Platelet Volume 10.5 fL (9.4-12.4); Monocytes % 12.3 %; Neutrophils # 5.8 K/mcL (1.6-8.9); Platelet Count 206 K/mcL (140-400); Red Cell Distribution Width 14.8 % (11.5-14.5); Segmented Neutrophils % 69.2 %; White Blood Count 8.3 K/mcL (4.3-11.1)
[2021-02-27 06:54] LABS: BUN/Creatinine Ratio 34 (6-26); Blood Urea Nitrogen 31 mg/dL (8-23); Calcium 8.8 mg/dL (8.6-10.3); Carbon Dioxide 25 mEq/L (23-29); Chloride 105 mEq/L (98-107); Glucose 143 mg/dL (70-105); Osmolality,Calculated 293 (280-300); Potassium 3.5 mEq/L (3.5-5.1); Sodium 137 mEq/L (136-145); eGFR For African Americans > 60 (> 60); eGFR For Non-African Americans > 60 (> 60)
[2021-02-27] MEDS: Tiotropium 10 INH DOSE IH SCH (07:20)
[2021-02-27] MEDS: Budesonide/Formoterol 160/4.5 1 PUFF INH IH SCH ×2 (07:21→20:06)
[2021-02-27] MEDS: Insulin LISPRO 300 UNITS/3 ML VIAL SUBQ SCH ×3 (07:53→16:26)
[2021-02-27] MEDS: Aspirin Enteric Coated 81 MG Tablet PO SCH (07:55)
[2021-02-27] MEDS: Spironolactone 25 MG TABLET PO SCH (07:55)
[2021-02-27] MEDS: *HR* Dabigatran 150 MG CAPSULE PO SCH ×2 (07:55→20:12)
[2021-02-27] MEDS: Loratadine 10 MG TABLET PO SCH (07:55)
[2021-02-27] MEDS: Isosorbide MONOnitrate (24 HR) 60 MG TAB.ER.24H PO SCH (07:55)
[2021-02-27] MEDS: Furosemide 40 MG TABLET PO SCH (07:55)
[2021-02-27] MEDS: hydrALAZINE 10 MG TABLET PO SCH ×3 (07:55→20:12)
[2021-02-27] MEDS: Tolterodine LA (24 HR) 4 MG CAP.ER.24H PO SCH (07:55)
[2021-02-27] MEDS: Magnesium Oxide 400 MG TABLET PO SCH (07:56)
[2021-02-27] MEDS: polyethylene glycoL 3350 17 GM POWD.PACK PO SCH (07:56)
[2021-02-27] MEDS: Insulin DETEMIR 100 UNIT/ML X5UNITS SUBQ SCH (20:13)
[2021-02-27] MEDS ORDERED: Famotidine 20 MG TABLET PO ONE (21:38)
[2021-02-28 05:19] LABS: Basophils % 0.4 %; Eosinophils # 0.2 K/mcL (0.0-0.6); Eosinophils % 1.9 %; Hematocrit 31.4 % (37.5-50.1); Hemoglobin 9.7 g/dL (12.9-16.9); Immature Granulocytes % 0.6 % (0-4); Lymphocytes # 1.6 K/mcL (0.6-4.6); Mean Corpuscular HGB Conc 30.9 g/dL (31.6-35.5); Mean Corpuscular Hemoglobin 29.7 pg (28.0-33.3); Mean Platelet Volume 10.5 fL (9.4-12.4); Monocytes # 1.3 K/mcL (0.0-1.3); Monocytes % 15.3 %; Neutrophils # 5.2 K/mcL (1.6-8.9); Platelet Count 205 K/mcL (140-400); Red Blood Count 3.27 M/mcL (4.19-5.50); Red Cell Distribution Width 14.9 % (11.5-14.5); Segmented Neutrophils % 62.8 %; White Blood Count 8.2 K/mcL (4.3-11.1)
[2021-02-28 05:46] LABS: BUN/Creatinine Ratio 32 (6-26); Blood Urea Nitrogen 31 mg/dL (8-23); Calcium 9.4 mg/dL (8.6-10.3); Carbon Dioxide 26 mEq/L (23-29); Chloride 103 mEq/L (98-107); Glucose 128 mg/dL (70-105); Magnesium 2.5 mg/dL (1.6-2.6); Osmolality,Calculated 290 (280-300); Potassium 3.8 mEq/L (3.5-5.1); Sodium 136 mEq/L (136-145); eGFR For African Americans > 60 (> 60); eGFR For Non-African Americans > 60 (> 60)
[2021-02-28] MEDS: Budesonide/Formoterol 160/4.5 1 PUFF INH IH SCH ×2 (07:44→19:41)
[2021-02-28] MEDS: Tiotropium 10 INH DOSE IH SCH (07:44)
[2021-02-28] MEDS: Aspirin Enteric Coated 81 MG Tablet PO SCH (09:04)
[2021-02-28] MEDS: Insulin LISPRO 300 UNITS/3 ML VIAL SUBQ SCH ×3 (09:04→16:19)
[2021-02-28] MEDS: Furosemide 40 MG TABLET PO SCH (09:04)
[2021-02-28] MEDS: *HR* Dabigatran 150 MG CAPSULE PO SCH ×2 (09:05→21:05)
[2021-02-28] MEDS: Magnesium Oxide 400 MG TABLET PO SCH (09:05)
[2021-02-28] MEDS: Loratadine 10 MG TABLET PO SCH (09:05)
[2021-02-28] MEDS: Spironolactone 25 MG TABLET PO SCH (09:05)
[2021-02-28] MEDS: Isosorbide MONOnitrate (24 HR) 60 MG TAB.ER.24H PO SCH (09:05)
[2021-02-28] MEDS: polyethylene glycoL 3350 17 GM POWD.PACK PO SCH (09:05)
[2021-02-28] MEDS: hydrALAZINE 10 MG TABLET PO SCH ×3 (09:05→21:05)
[2021-02-28] MEDS: Tolterodine LA (24 HR) 4 MG CAP.ER.24H PO SCH (09:05)
[2021-02-28] MEDS: Insulin DETEMIR 100 UNIT/ML X5UNITS SUBQ SCH (21:06)
[2021-03-01 01:37] LABS: Basophils % 0.2 %; Eosinophils # 0.2 K/mcL (0.0-0.6); Eosinophils % 1.7 %; Hemoglobin 9.7 g/dL (12.9-16.9); Immature Granulocytes % 0.3 % (0-4); Lymphocytes # 1.6 K/mcL (0.6-4.6); Lymphocytes % 18.9 %; Mean Corpuscular HGB Conc 31.3 g/dL (31.6-35.5); Mean Corpuscular Hemoglobin 30.1 pg (28.0-33.3); Mean Corpuscular Volume 96.3 fL (83.0-100.0); Mean Platelet Volume 10.4 fL (9.4-12.4); Monocytes # 1.3 K/mcL (0.0-1.3); Monocytes % 14.9 %; Neutrophils # 5.5 K/mcL (1.6-8.9); Platelet Count 199 K/mcL (140-400); Red Blood Count 3.22 M/mcL (4.19-5.50); Red Cell Distribution Width 14.8 % (11.5-14.5); White Blood Count 8.6 K/mcL (4.3-11.1)
[2021-03-01 01:56] LABS: BUN/Creatinine Ratio 25 (6-26); Blood Urea Nitrogen 26 mg/dL (8-23); Carbon Dioxide 27 mEq/L (23-29); Chloride 102 mEq/L (98-107); Glucose 100 mg/dL (70-105); Osmolality,Calculated 287 (280-300); Potassium 3.7 mEq/L (3.5-5.1); Sodium 136 mEq/L (136-145); eGFR For African Americans > 60 (> 60); eGFR For Non-African Americans > 60 (> 60)
[2021-03-01] MEDS: Insulin LISPRO 300 UNITS/3 ML VIAL SUBQ SCH ×3 (06:59→15:47)
[2021-03-01] MEDS: Aspirin Enteric Coated 81 MG Tablet PO SCH (07:27)
[2021-03-01] MEDS: Loratadine 10 MG TABLET PO SCH (07:27)
[2021-03-01] MEDS: Tolterodine LA (24 HR) 4 MG CAP.ER.24H PO SCH (07:27)
[2021-03-01] MEDS: Furosemide 40 MG TABLET PO SCH (07:27)
[2021-03-01] MEDS: polyethylene glycoL 3350 17 GM POWD.PACK PO SCH (07:27)
[2021-03-01] MEDS: Spironolactone 25 MG TABLET PO SCH (07:27)
[2021-03-01] MEDS: *HR* Dabigatran 150 MG CAPSULE PO SCH (07:28)
[2021-03-01] MEDS: hydrALAZINE 10 MG TABLET PO SCH ×3 (07:28→21:24)
[2021-03-01] MEDS: Isosorbide MONOnitrate (24 HR) 60 MG TAB.ER.24H PO SCH (07:28)
[2021-03-01] MEDS: Magnesium Oxide 400 MG TABLET PO SCH (07:28)
[2021-03-01] MEDS: Budesonide/Formoterol 160/4.5 1 PUFF INH IH SCH ×2 (07:48→20:24)
[2021-03-01] MEDS: Tiotropium 10 INH DOSE IH SCH (07:48)
[2021-03-01] MEDS ORDERED: *HR* Metoprolol 5 MG/5 ML VIAL IVP PRN (18:53)
[2021-03-01] MEDS: Insulin DETEMIR 100 UNIT/ML X5UNITS SUBQ SCH (21:24)
[2021-03-02 02:22] LABS: Basophils % 0.1 %; Eosinophils # 0.1 K/mcL (0.0-0.6); Eosinophils % 1.6 %; Hematocrit 32.1 % (37.5-50.1); Hemoglobin 10.1 g/dL (12.9-16.9); Immature Granulocytes % 0.5 % (0-4); Lymphocytes # 1.3 K/mcL (0.6-4.6); Lymphocytes % 14.9 %; Mean Corpuscular HGB Conc 31.5 g/dL (31.6-35.5); Mean Corpuscular Hemoglobin 30.3 pg (28.0-33.3); Mean Corpuscular Volume 96.4 fL (83.0-100.0); Mean Platelet Volume 10.5 fL (9.4-12.4); Monocytes # 1.3 K/mcL (0.0-1.3); Monocytes % 15.4 %; Neutrophils # 5.8 K/mcL (1.6-8.9); Platelet Count 193 K/mcL (140-400); Red Blood Count 3.33 M/mcL (4.19-5.50); Segmented Neutrophils % 67.5 %; White Blood Count 8.7 K/mcL (4.3-11.1)
[2021-03-02 02:41] LABS: BUN/Creatinine Ratio 22 (6-26); Blood Urea Nitrogen 20 mg/dL (8-23); Calcium 9.1 mg/dL (8.6-10.3); Carbon Dioxide 26 mEq/L (23-29); Chloride 102 mEq/L (98-107); Glucose 127 mg/dL (70-105); Osmolality,Calculated 284 (280-300); Potassium 4.1 mEq/L (3.5-5.1); Sodium 135 mEq/L (136-145); eGFR For African Americans > 60 (> 60); eGFR For Non-African Americans > 60 (> 60)
[2021-03-02] MEDS: Insulin LISPRO 300 UNITS/3 ML VIAL SUBQ SCH ×3 (06:56→15:34)
[2021-03-02] MEDS: hydrALAZINE 10 MG TABLET PO SCH ×3 (07:14→20:30)
[2021-03-02] MEDS: polyethylene glycoL 3350 17 GM POWD.PACK PO SCH (07:14)
[2021-03-02] MEDS: Magnesium Oxide 400 MG TABLET PO SCH (07:14)
[2021-03-02] MEDS: Isosorbide MONOnitrate (24 HR) 60 MG TAB.ER.24H PO SCH (07:14)
[2021-03-02] MEDS: Tolterodine LA (24 HR) 4 MG CAP.ER.24H PO SCH (07:14)
[2021-03-02] MEDS: Spironolactone 25 MG TABLET PO SCH (07:14)
[2021-03-02] MEDS: Aspirin Enteric Coated 81 MG Tablet PO SCH (07:14)
[2021-03-02] MEDS: Loratadine 10 MG TABLET PO SCH (07:14)
[2021-03-02] MEDS: Furosemide 40 MG TABLET PO SCH (07:14)
[2021-03-02] MEDS: Budesonide/Formoterol 160/4.5 1 PUFF INH IH SCH ×2 (07:43→20:07)
[2021-03-02] MEDS: Tiotropium 10 INH DOSE IH SCH (07:43)
[2021-03-02] MEDS: Insulin DETEMIR 100 UNIT/ML X5UNITS SUBQ SCH (20:30)
[2021-03-02] MEDS: Melatonin 3 MG TABLET PO PRN (20:38)
[2021-03-02] MEDS ORDERED: CeFAZolin Syr 3,000MG/30 ML 3,000 MG/30 ML SYRINGE IVPB ONE (20:50)
[2021-03-03 01:57] LABS: Basophils % 0.1 %; Eosinophils # 0.1 K/mcL (0.0-0.6); Eosinophils % 1.7 %; Hematocrit 29.9 % (37.5-50.1); Hemoglobin 9.5 g/dL (12.9-16.9); Immature Granulocytes % 0.6 % (0-4); Lymphocytes # 1.2 K/mcL (0.6-4.6); Lymphocytes % 13.9 %; Mean Corpuscular HGB Conc 31.8 g/dL (31.6-35.5); Mean Corpuscular Hemoglobin 30.4 pg (28.0-33.3); Mean Corpuscular Volume 95.5 fL (83.0-100.0); Mean Platelet Volume 10.5 fL (9.4-12.4); Monocytes # 1.3 K/mcL (0.0-1.3); Monocytes % 15.9 %; Neutrophils # 5.6 K/mcL (1.6-8.9); Platelet Count 182 K/mcL (140-400); Red Blood Count 3.13 M/mcL (4.19-5.50); Red Cell Distribution Width 14.9 % (11.5-14.5); Segmented Neutrophils % 67.8 %; White Blood Count 8.3 K/mcL (4.3-11.1)
[2021-03-03 02:15] LABS: BUN/Creatinine Ratio 22 (6-26); Blood Urea Nitrogen 19 mg/dL (8-23); Calcium 8.7 mg/dL (8.6-10.3); Carbon Dioxide 26 mEq/L (23-29); Chloride 103 mEq/L (98-107); Glucose 142 mg/dL (70-105); Osmolality,Calculated 287 (280-300); Potassium 4.1 mEq/L (3.5-5.1); Sodium 136 mEq/L (136-145); eGFR For African Americans > 60 (> 60); eGFR For Non-African Americans > 60 (> 60)
[2021-03-03] MEDS: Insulin LISPRO 300 UNITS/3 ML VIAL SUBQ SCH ×3 (07:31→16:46)
[2021-03-03] MEDS ORDERED: CeFAZolin Syr 3,000MG/30 ML 3,000 MG/30 ML SYRINGE IVPB ONE ×3 (08:00→11:36)
[2021-03-03] MEDS: Tiotropium 10 INH DOSE IH SCH (08:08)
[2021-03-03] MEDS: Budesonide/Formoterol 160/4.5 1 PUFF INH IH SCH ×2 (08:08→22:21)
[2021-03-03 08:17] LABS: Magnesium 2.5 mg/dL (1.6-2.6)
[2021-03-03] MEDS: Spironolactone 25 MG TABLET PO SCH (09:59)
[2021-03-03] MEDS: Isosorbide MONOnitrate (24 HR) 60 MG TAB.ER.24H PO SCH (09:59)
[2021-03-03] MEDS: Furosemide 40 MG TABLET PO SCH (09:59)
[2021-03-03] MEDS: Magnesium Oxide 400 MG TABLET PO SCH (09:59)
[2021-03-03] MEDS: Loratadine 10 MG TABLET PO SCH (10:00)
[2021-03-03] MEDS: Tolterodine LA (24 HR) 4 MG CAP.ER.24H PO SCH (10:00)
[2021-03-03] MEDS: Aspirin Enteric Coated 81 MG Tablet PO SCH (10:00)
[2021-03-03] MEDS: hydrALAZINE 10 MG TABLET PO SCH ×3 (10:00→20:16)
[2021-03-03] MEDS: polyethylene glycoL 3350 17 GM POWD.PACK PO SCH (10:00)
[2021-03-03] MEDS ORDERED: *HR* Midazolam HCl 2 MG/2 ML VIAL ONE (12:53)
[2021-03-03] MEDS ORDERED: *HR* FentaNYL (PF) 100 MCG/2 ML VIAL ONE (12:53)
[2021-03-03] MEDS ORDERED: 0.9 % Sodium Chloride 1,000 ML ONE (12:54)
[2021-03-03] MEDS ORDERED: 0.9 % Sodium Chloride 500 ML ONE (12:54)
[2021-03-03] MEDS ORDERED: *HR* OxyCODONE Immed Rel 5 MG TABLET PO PRN (14:07)
[2021-03-03] MEDS: Torsemide 20 MG TABLET PO SCH (20:16)
[2021-03-03] MEDS: CeFAZolin 2 GM/120 ML BAG IVPB SCH (20:17)
[2021-03-03] MEDS: Insulin DETEMIR 100 UNIT/ML X5UNITS SUBQ SCH (20:58)
[2021-03-04] MEDS: CeFAZolin 2 GM/120 ML BAG IVPB SCH (04:03)
[2021-03-04 05:37] LABS: BUN/Creatinine Ratio 18 (6-26); Blood Urea Nitrogen 18 mg/dL (8-23); Carbon Dioxide 29 mEq/L (23-29); Chloride 104 mEq/L (98-107); Potassium 4.1 mEq/L (3.5-5.1); Sodium 140 mEq/L (136-145); eGFR For African Americans > 60 (> 60); eGFR For Non-African Americans > 60 (> 60)
[2021-03-04] MEDS: Budesonide/Formoterol 160/4.5 1 PUFF INH IH SCH (07:52)
[2021-03-04] MEDS: Tiotropium 10 INH DOSE IH SCH (07:53)
[2021-03-04] MEDS: Loratadine 10 MG TABLET PO SCH (08:12)
[2021-03-04] MEDS: hydrALAZINE 10 MG TABLET PO SCH (08:12)
[2021-03-04] MEDS: Torsemide 20 MG TABLET PO SCH (08:12)
[2021-03-04] MEDS: Tolterodine LA (24 HR) 4 MG CAP.ER.24H PO SCH (08:12)
[2021-03-04] MEDS: Magnesium Oxide 400 MG TABLET PO SCH (08:13)
[2021-03-04] MEDS: polyethylene glycoL 3350 17 GM POWD.PACK PO SCH (08:13)
[2021-03-04] MEDS: Spironolactone 25 MG TABLET PO SCH (08:13)
[2021-03-04] MEDS: Aspirin Enteric Coated 81 MG Tablet PO SCH (08:13)
[2021-03-04] MEDS: Insulin LISPRO 300 UNITS/3 ML VIAL SUBQ SCH ×2 (08:13→11:19)
[2021-03-04] MEDS: Isosorbide MONOnitrate (24 HR) 60 MG TAB.ER.24H PO SCH (08:13)
[2021-03-04 11:01] VITALS: BP 143/65
== END 2021-03-04 13:15 | disposition home or self-care (01) | DRG 242 ==
LOC: 2ANU 17:09 → EMEROOARM 17:09 → SUATTDRO 21:13 → 2ANU 22:05 → SUATTDRO 02-23 16:45 → 2ANU 03-03 10:58
PROVIDERS: ADMIT Family Medicine; ATTEND Internal Medicine